=== PATIENT | male | born 1950 | race Caucasian/White ===

== ENCOUNTER 2018-11-04 05:21 | Inpatient (IN) | payer MEDICARE ==
[~2018-11-04] VITALS: Ht 185.4 cm; Wt 186.4 kg
[2018-11-04] VITALS (17 sets, daily range): BP systolic 94–155; BP diastolic 60–93; PULSE 84–108; RESP 20–32; Ht 185.4 cm; Wt 186.4 kg
--- NOTE | 2018-11-04 05:41 | ERD ---
ER Documentation Chief Complaint Chief Complaint BIB RA 7 FROM HOME FOR SOB, DIZZINESS, POSSIBLE SYNCOPE HPI This is a 60-year-old male brought by rescue sent home with shortness of breath dizziness and syncopal episode. He was found down on the hallway. Upon arrival patient is severely tachypneic at 38 satting in the 75 percentile range on room air. He comes up to 83 on high flow nasal cannula. He was a EMS P notification as possible STEMI, however upon arrival no evidence of STEMI was noted in the either the field EKG or the first EKG done here. ROS All systems reviewed and are negative except as per history of present illness. Physical Exam Vitals Vital Signs Date Temp Pulse Resp B/P (MAP) Pulse Ox O2 O2 Flow FiO2 Time Delivery Rate 11/04/18 100.5 135 38 166/114 86 05:27 (131) Physical Exam Const: No acute distress Head: Atraumatic Eyes: Normal Conjunctiva ENT: Normal External Ears, Nose and Mouth. Neck: Full range of motion. No meningismus. Resp: Clear to auscultation bilaterally Cardio: Regular rate and rhythm, no murmurs Abd: Soft, non tender, non distended. Normal bowel sounds Skin: No petechiae or rashes Back: No midline or flank tenderness Ext: No cyanosis, or edema Neur: Awake and alert Psych: Normal Mood and Affect Results 24 hrs Laboratory Tests Test 11/04/18 05:29 11/04/18 05:31 White Blood Count Pending Red Blood Count Pending Hemoglobin Pending Hematocrit Pending Mean Corpuscular Volume Pending Mean Corpuscular Hemoglobin Pending Mean Corpuscular Hemoglobin Concent Pending Red Cell Distribution Width Pending Platelet Count Pending Mean Platelet Volume Pending POC Venous Lactate 1.8 mmol/L Procedures/MDM Emergency department course: Patient seen immediately by ER MD in ambulance bay. Taken to bed 14 for critical bed placement. Code sepsis called. Intravenous access established. Patient placed on BiPAP. Blood work retrieved. Stat EKG d one. Serial exams improved EKG: Rate/Rhythm: Variable IA intervals, irregularly rhythm, tachycardic rate QRS, ST, T-waves: [No changes consistent w/ acute ischemia] Impression: A. fib with RVR Chest X-ray 1V Interpreted by me: Soft Tissue: No acute abnormalities Bones: No acute abnormalities Mediastinum/Cardiac Silhouette/Lungs: [No acute abnormalities] increased interstitial fluid markings. Impression: Pulmonary edema Medical decision making: This is an unfortunate 68-year-old male with multiple medical problems and multiple comorbidities comes in with severe shortness of breath and syncopal episode. No evidence of STEMI was noted by me does have evidence of pulmonary edema. Patient has improved somewhat on BiPAP at this time. Patient will be admitted to intensive care unit for further evaluation and management given his continued tachypnea and overall clinical picture. Critical Care: Time: 45 minutes, independent of any separately billable procedural time Treatments/Evaluations: Close monitoring and treatment of unstable vital signs, cardiorespiratory, and neurologic status, while maintaining tight balance of fluid, respiratory, and cardiac interventions. Departure Diagnosis: Primary Impression: Shortness of breath Additional Impressions: Acute pulmonary edema Atrial fibrillation with RVR Acute febrile illness Acute respiratory failure Respiratory failure complication: unspecified whether with hypoxia or hypercapnia Qualified Codes: J96.00 - Acute respiratory failure, unspecified whether with hypoxia or hypercapnia Condition: Critical TOO ELLIS Nov 04, 2018 05:41
[2018-11-04] MEDS ORDERED: FUROSEMIDE 40 MG INJ IV ONE (06:00)
[2018-11-04] MEDS ORDERED: HEPARIN 1000 UNITS/ML 10 ML INJ IV ONE (06:30)
[2018-11-04] MEDS ORDERED: METOPROLOL 5 MG INJ IV ONE (06:30)
[2018-11-04] MEDS ORDERED: MAGNESIUM SULFATE 1 GM/D5W 100 ML IVPB ONE (06:30)
[2018-11-04] MEDS ORDERED: ACETAMINOPHEN 650MG/20.3ML CUP PO PRN (06:30)
[2018-11-04] MEDS ORDERED: HEPARIN 25000 UNITS/250 ML 250 ML IV SCH (06:30)
[2018-11-04] MEDS: PANTOPRAZOLE 40 MG INJ IV SCH (07:03)
[2018-11-04] MEDS ORDERED: HEPARIN 1000 UNITS/ML 10 ML INJ IV SCH (07:30)
[2018-11-04] MEDS ORDERED: HEPARIN 1000 UNITS/ML 10 ML INJ IV PRN ×2 (07:30→12:30)
--- NOTE | 2018-11-04 07:35 | HP ---
Date/Time of Note Date/Time of Note DATE: 11/04/18 TIME: 07:19 Assessment/Plan VTE Prophylaxis Pharmacological prophylaxis: heparin Lines/Catheters IV Catheter Type (from Nrs): Saline Lock Assessment/Plan Hospital Course This is a 60-year-old male being admitted to the ICU floor for: #1 acute hypoxic respiratory failure: Currently on BiPAP with improvement. Etiology possibly multifactorial secondary to underlying CHF, pulmonary emb olism, pneumonia other. We will continue the patient on BiPAP at the current time. Serial ABGs. Consult pulmonology. Chest x-ray does show signs of possible infiltrates and/or congestion. Patient did present with a fever of 100.5. Will get blood cultures and lactate level and start the patient on broad-spectrum antibiotics for possible community-acquired pneumonia. We will give the patient dose of Lasix as well. Will check a d-dimer and bilateral venous Dopplers. He will already be started on heparin drip given the fact that he is in rapid A. fib with RVR. #2 rapid A. fib with RVR: Patient denies history of this. We will check a magnesium level, potassium at the current time is normal. Will check TSH, will trend cardiac enzymes x3. Will get an echocardiogram. Will consult cardiology . Will give a dose of Lopressor 2.5 IV x1 #3 Acute versus acute on chronic kidney injury: I do not have a previous baseline creatinine. Creatinine noted to be 3.66. Will avoid nephrotoxic agents. Will check a renal ultrasound. Will check urine studies. Including urinalysis and urine microscope. Will consult nephrology Dr. Watson. #4 elevated BNP: Patient had a BNP of approximately 3000 along with signs of volume overload. Likely undiagnosed CHF. Will check an echocardiogram. The patient did receive a dose of Lasix in the ED will assess urine output. Will consult cardiology. Hold off on CICI inhibitor initiation at the current time given patient's renal failure. #5 metabolic acidosis: Likely multifactorial secondary to renal failure, possible underlying pneumonia. Will monitor closely. Will treat with antibiotics for the pneumonia. Will consult nephrology. #6 hypertension: We will need to confirm patient's home medications, will start the patient currently on Norvasc. #7 DVT GI prophylaxis: Heparin, Protonix Further treatment strategy will be implemented as per the clinical course Greater than 45 minutes critical care time spent on care management this patient. Result Diagram: 3/7/19 0529 11/04/18 0531 Results 24hrs Laboratory Tests Test 11/04/18 05:27 11/04/18 05:29 11/04/18 05:31 11/04/18 05:35 Blood Gas Blood arterial Specimen Source Arterial Blood 11/04/2018 6:27:39 Date Drawn AM Arterial Blood 7.377 pH (Temp corrected) Arterial Blood 23.9 L pCO2 (Temp correct) Arterial Blood 490.3 H pO2 (Temp corrected) Arterial Blood 13.7 L HCO3 Arterial Blood -9.3 L Base Excess Arterial Blood 99.9 H Oxygen Saturatio n [place] Test ACCEPTAB Arterial Blood Right Radial Gas Puncture Site Arterial 0.4 Blood Carboxyhem oglobin Arterial Blood 0.5 Methemoglobin Blood Gas A-a O2 198.8 H Differential Oxyhemoglobin 99.0 Percent Blood Gas 37.0 Temperature Blood Gas 20.0 Respiration Rate Blood Gas Actual 30 Respiration Rate Blood Gas MASK - BIPAP Modality FiO2 100.0 Blood Gas 10 Pressure Support Blood Gas 15/5 IPAP/EPAP Ratio Blood Gas [facility] Notified Whom Blood Gas 11/04/2018 6:38:47 Notified Time AM White Blood 7.1 Count Red Blood Count 5.58 Hemoglobin 14.0 Hematocrit 44.0 Mean Corpuscular 78.9 L Volume Mean Corpuscular 25.1 L Hemoglobin Mean Corpuscular 31.8 L Hemoglobin Nallely nt Red Cell 17.0 H Distribution Width Platelet Count 161 Mean Platelet 10.4 Volume Immature 0.700 H Granulocytes % Neutrophils % 79.8 H Lymphocytes % 10.9 L Monocytes % 8.3 Eosinophils % 0.0 Basophils % 0.3 Nucleated Red 0.0 Blood Cells % Immature 0.050 H Granulocytes # Neutrophils # 5.7 Lymphocytes # 0.8 Monocytes # 0.6 Eosinophils # 0.0 Basophils # 0.0 Nucleated Red 0.0 Blood Cells # Prothrombin Time 14.9 Prothrombin Time 1.2 Ratio INR 1.16 International Normalized Ratio Activated 30.3 Partial Thrombop last Time D-Dimer 3927.88 H D-Dimer Comment Sodium Level 132 L Potassium Level 4.4 Chloride Level 101 Carbon Dioxide 16 L Level Anion Gap 15 H Blood Urea 43 H Nitrogen Creatinine 3.66 H Est Glomerular 17 L Filtrat Rate mL/min Glucose Level 139 POC Venous 1.8 Lactate Calcium Level 9.3 Total Bilirubin 0.7 Direct Bilirubin 0.00 Indirect 0.7 Bilirubin Aspartate Amino 44 Transf (AST/SGOT ) Alanine 17 Aminotransferase (ALT/SGPT) Alkaline 63 Phosphatase Troponin I 0.065 B-Type 3840 H Natriuretic Peptide Total Protein 7.6 Albumin 4.1 Globulin 3.50 H Albumin/Globulin 1.17 Ratio Lipase 72 Urine Color YELLOW Urine Clarity SLIGHTLY CLOUDY A Urine pH 5.0 Urine Specific 1.013 [place] Urine Ketones NEGATIVE Urine Nitrite NEGATIVE Urine Bilirubin NEGATIVE Urine NEGATIVE Urobilinogen Urine Leukocyte NEGATIVE Esterase Urine 69 H Microscopic RBC Urine 0 Microscopic WBC Urine Hemoglobin 3+ H Urine Glucose NEGATIVE Urine Total 2+ H Protein Test 11/04/18 05:52 Bedside Urine pH 5.5 (LAB) Bedside Urine 3+ H Protein (LAB) Bedside Urine Negative Glucose (UA) Bedside Urine Negative Ketones (LAB) Bedside Urine 3+ H Blood Bedside Urine Negative Nitrite (LAB) Bedside Urine Negative Leukocyte Estera se (L HPI/ROS Admit Date/Time Admit Date/Time Hx of Present Illness Chief complaint: Shortness of breath, syncopal episode This is a 68-year-old male who was brought in via EMS for shortness of breath. History was obtained from the patient as well as from the ED physician. Apparently the patient's brother had stated that the patient was noted to be short of breath and he was complaining of dizziness and had been falling. He possibly had a syncopal episode at home. EMS reported that the patient was found in the hallway with respiratory distress and he was saturating in the low 80s on room air. Patient was given albuterol treatment and placed on a nonrebreather. When the patient arrived in the emergency department he was noted to be tachycardic in the 130s with oxygenation 86-89% on 15 L no nrebreather. Upon examination of the patient at the bedside he did not report any chest pain. He did appear to be in moderate respiratory distress and was placed on a BiPAP which did result in improvement of his breathing. Telemetry monitoring did show what appeared to be rapid A. fib with RVR at approximately 130 bpm. Patient was noted to have coarse breath sounds bilaterally, and slight wheezing. Allergies: NKDA Medications: Unknown will need to confirm ROS Const: As per HPI s Eyes : No pain discharge or redness or change in visual acuity ENT: No pain, sore throat, congestion, congestion, dysphagia or discharge Respiratory: As per HPI Cardiovascular: No chest pain, palpitation, PND, or edema GI : no change in appetite, abdominal pain, nausea, vomiting, diarrhea, constipation, or change in the color his stool Genitourinary: No dysuria, hematuria, flank pain , discharge or CVA tenderness Musculoskeletal: As per HPI Skin: No rash, bruising or hives Neuro: No headache, dizziness, syncope, seizure, focal weakness Endocrine: No polyuria, polydipsia, temperature intolerance Psych: No hallucination, depression, anxiety or suicidal ideation PMH/Family/Social Past Medical History Hypertension Medications Current Medications Acetaminophen (Tylenol Liquid) 650 mg Q6H PRN PO PAIN LEVEL 1-3 OR FEVER; Start 11/04/18 at 06:30 Pantoprazole (Protonix Iv) 40 mg DAILY@06 IV ; Start 11/04/18 at 06:00 Heparin Sodium (Porcine) (Heparin (1000 Units/ml)) 4,000 unit PER PROTOCOL PRN IV aPTT<47; Start 11/04/18 at 12:30 Heparin Sodium (Porcine) 250 ml @ 10 mls/hr PER PROTOCOL IV ; Start 11/04/18 at 06:30 Magnesium Sulfate/ Dextrose 100 ml @ 100 mls/hr ONCE ONCE IVPB ; Start 11/04/18 at 06:30; Stop 11/04/18 at 07:29 Coded Allergies: No Known Allergy (Unverified , 11/04/18) Past Surgical History Past Surgical Hx: no surgical history Family History Significant Family History: no pertinent family hx Social History Alcohol Use: none Smoking Status: Never smoker Drug Use: none Exam/Review of Systems Vital Signs Vitals Vital Signs Date Temp Pulse Resp B/P (MAP) Pulse Ox O2 O2 Flow FiO2 Time Delivery Rate 11/04/18 91 29 147/86 100 BIPAP 06:30 (106) 11/04/18 100 05:30 11/04/18 15.0 05:30 11/04/18 100.5 05:27 Exam Exam General: Patient is currently lying in bed in moderate respiratory distress, he is connected to the BiPAP, patient appears disheveled HEENT: Atraumatic, normocephalic. The pupils are equal, round and reactive. Extraocular motor are intact Neck: Supple with full range of motion. No rigidity or meningismus Chest: Nontender Lungs: Coarse breath sounds bilaterally, mild wheezing/rales Heart: Irregularly irregular at a rate of approximately 130 bpm Abdomen: Morbidly obese, soft , nontender, nondistended , bowel sounds are present. No guarding no rebound tenderness , No masses or organomegaly. No costovertebral temporal angle mass Extremities: Bilateral lower extremity edema left greater than the right, chronic skin changes noted Neurologic: Normal mental status, speech normal, cranial nerves II through XII are intact, motor and sensory are intact, Additional Comments EKG: Rapid A. fib with RVR approximately 130 bpm PROCEDURE: XR Chest. CLINICAL INDICATION: Sepsis TECHNIQUE: AP portable chest was obtained COMPARISON: None. FINDINGS: The left lateral lower hemithorax is cut off the image. The heart is mildly enlarged. Atherosclerosis of the aorta. No evidence of pulmonary vascular congestion. Increased density at both lung bases more so left base may all be due to atelectasis and scarring. Basilar infiltrates especially at the left base cannot be excluded. Remainder lungs are clear. No evidence of right pleural effusion and pneumothoraces. No definite left pleural effusion. IMPRESSION: 1. Bibasilar increased density more extensive at the left base may all be due to atelectasis and scarring. Basilar infiltrates especially at the left base sh ould be considered. 2. Cardiomegaly without congestive heart failure. RPTAT:AAJJ Physician Kayy Date Time Electronically viewed and signed by Physician Kayy on 11/04/2018 05:58 BM/ CC: TOO ELLIS [id number] MANJIT AKBAR Nov 04, 2018 07:30
[2018-11-04] MEDS: HEPARIN 25000 UNITS/D5W 250 ML (VPH) IV SCH ×2 (07:39→23:33)
[2018-11-04] MEDS: AZITHROMYCIN 500MG/NS (PMX) 250 ML IVPB SCH (08:26)
[2018-11-04] MEDS ORDERED: CEFTRIAXONE 1 GM/50 ML (PMX) 50 ML IVPB ONE (09:00)
--- NOTE | 2018-11-04 10:13 | CONS ---
DATE OF ADMISSION: 11/04/2018 DATE OF CONSULTATION: 11/04/2018 TYPE OF CONSULTATION: Nephrology. REASON FOR CONSULTATION: Acute kidney injury. PHYSICIAN REQUESTING CONSULT: Dr. Akbar. HISTORY OF PRESENT ILLNESS: This is a 68-year-old male with a past medical history of hypertension, who was brought to the emergency room due to increased shortness of breath, dizziness. The patient s tates he may have had a syncopal episode at home. The patient reported increasing shortness of breat h. Upon arrival to the emergency room, the patient was found to be saturating in the 80s. The patie nt was tachycardic and was placed on BiPAP, given albuterol treatment. Upon arrival, the patient als o had imaging studies including a chest x-ray, which showed increased densities in the lung. The pat ient was also started on antibiotic therapy. In terms of patient's renal history, the patient denies any prior history of chronic kidney disease, acute kidney injury. On admission, the patient has creatinine of 3.66 mg/dL. The patient denies any hemoptysis, hematemesis or hematochezia. PAST MEDICAL HISTORY: History of hypertension. FAMILY HISTORY: No family history of kidney disease. SOCIAL HISTORY: The patient denies any drug use. ALLERGIES: NO KNOWN DRUG ALLERGIES. REVIEW OF SYSTEMS: A 14-point review of systems was reviewed. Pertinent positives stated in HPI, ot herwise negative. PAST SURGICAL HISTORY: None per patient. PHYSICAL EXAMINATION: VITAL SIGNS: Blood pressure is 128/90, respirations 28, pulse 91, temperature 100.0. HEENT: Head is normocephalic. Pupils are reactive to light. NECK: Supple. HEART: Regular rate. LUNGS: Show diminished breath sounds at the base. ABDOMEN: Soft, nontender to palpation without rebound or guarding. EXTREMITIES: Negative for clubbing, cyanosis. Positive edema. DERMATOLOGIC: No rashes. MUSCULOSKELETAL: No joint effusion. NEUROLOGIC: Limited exam, but no focal deficits. LABORATORY DATA: Shows sodium 132, potassium 4.4, BUN 43, creatinine 3.66. White count 7.1, hemoglo bin 14.0, platelet count is 161. Urinalysis shows pyuria, no hematuria. Positive proteinuria. ASSESSMENT AND PLAN: This is a 68-year-old male who presents with: 1. Renal failure, possible nonoliguric acute kidney injury, possible chronic kidney disease. Etiolo gy of renal failure is unclear. Multifactorial possibilities including hemodynamics, questionable ca rdiorenal syndrome, possible tubular injury. Plan at this point is to do a full evaluation. We will repeat UA with microanalysis, check urine electrolytes, calculate a FENa. We will check a renal ult rasound to evaluate renal parenchyma. We would otherwise continue medical management. Continue anti biotic therapy. Continue supportive care, renally dose all medicines. We would also agree with [facility] oral a 2D echo to evaluate the patient's ejection fraction. 2. Anemia. Continue to monitor hemoglobin and hematocrit levels. 3. Hyponatremia, etiology is likely secondary to acute kidney injury causing decreased free water ur inary excretion. We will monitor sodium levels and limit free water intake. 4. Metabolic acidosis with respiratory compensation. Etiology is secondary to acute kidney injury. We will continue to monitor. No need for bicarbonate therapy at this time. 5. Volume overload. Etiology may be secondary to congestive heart failure. We will follow up 2D ec ho. Continue diuretic therapy, and monitor closely. 6. Acute hypoxemic respiratory failure. Etiology is possibly multifactorial secondary to congestive heart failure, possible chronic obstructive pulmonary disease exacerbation, questionable PE. The taylor stinson is currently on heparin protocol on BiPAP, received diuretic therapy. We will continue to hardik tor closely. 7. Atrial fibrillation with rapid rate. Continue current medical management. We will continue to c heck serial troponins to rule out acute coronary syndrome. Check TSH. 8. Hypertension. Continue current blood pressure regimen. 9. Possible pneumonia. Continue current antibiotic therapy. Thank you, Dr. Akbar, for this interesting consult. It will be a pleasure to follow patient with sugey ann throughout the hospital course. Dictated By: TOBI FLORES DO NR/NTS Conf#: [id number] DID#: [id number] CC: MANJIT AKBAR MD; FRANCIS OROZCO MD; DIANA KWOK DO;*EndCC*
--- NOTE | 2018-11-04 10:28 | CONS ---
Assessment/Plan Assessment/Plan Assessment/Plan (Daily) Chest x-ray showing cardiomegaly Assessment recommendations; 1. Patient admitted with shortness of breath is likely is due to A. fib with RVR. Patient started on intravenous heparin by protocol. Being followed by passenger solicitor. 2. Possibly underlying chronic renal insufficiency with possibly acute decompensation. 3. Mild metabolic acidosis. 4. Underlying obesity with likely sleep apnea. 5. Chronic appearing lower extremity edema without any evidence of infection. 6. Mild CHF. Continue current supportive care. Continue current antibiotics. Further recommendations per pipe fitter fire sprinkler systems and passenger solicitor. Continue BiPAP for now. Obtain follow-up chest x-ray in 24 hours. Consultation Date/Type/Reason Admit Date/Time Date of Consultation: Nov 04, 2018 Type of Consult Pulmonary/critical care Patient is a 68-year-old male who came into the emergency room with complaints of shortness of breath. Patient was found to be in atrial fibrillation with rapid ventricular response. Patient has been started on intravenous heparin by protocol and now transferred to ICU for further care. Patient is completely awake and alert and was able to talk despite being on BiPAP. According to him he is feeling much better since admission. Denies any chest pain, wheezing, cough. Sputum production. Past medical history; 1. Likely underlying sleep apnea. 2. Chronic lower extremity cellulitis. 3. Possibly chronic renal insufficiency. Medications; reviewed. Allergies; none. Social history; patient never smoked. Occupational history; patient is on disability. Has had miscellaneous occupations. Family history; noncontributory. Review of systems; denies any headache, seizures. Any chest pain. Angina. Shortness of breath has improved. Complains of very scant cough without any sputum production. Denies any fever or chills. Denies any abdominal pain, nausea vomiting. Any melena or hematochezia. Any diarrhea. Complains of chronic lower extremity edema. Complains of chronic orthopnea. Chronic dyspnea on exertion. Complains of snoring and excessive daytime sleepiness. General exam; elderly male, morbidly obese, on BiPAP. Awake and alert. Currently in no distress. Date/Time of Note DATE: 11/04/18 TIME: 10:24 Past Medical History Home Meds Unable to Obtain Active Prescriptions or Reported Meds Medications Current Medications Acetaminophen (Tylenol Liquid) 650 mg Q6H PRN PO PAIN LEVEL 1-3 OR FEVER; Start 11/04/18 at 06:30 Pantoprazole (Protonix Iv) 40 mg DAILY@06 IV Last administered on 11/04/18at 07:03; Admin Dose 40 MG; Start 11/04/18 at 06:00 Heparin Sodium (Porcine) (Heparin (1000 Units/ml)) 10,000 unit ONCE IV Last administered on 11/04/18at 07:37; Admin Dose 10,000 UNIT; Start 11/04/18 at 07:30; Stop 11/04/18 at 23:59 Heparin Sodium (Porcine) 250 ml @ 20 mls/hr Q24H IV Last administered on 11/04/18at 07:39; Admin Dose 20 MLS/HR; Start 11/04/18 at 07:30 Heparin Sodium (Porcine) (Heparin (1000 Units/ml)) PRN PRN IV PENDING LAB VALUE; Start 11/04/18 at 07:30 Azithromycin 250 ml @ 250 mls/hr Q24H IVPB Last administered on 11/04/18at 08:26; Admin Dose 250 MLS/HR; Start 11/04/18 at 08:00 Allergies: Coded Allergies: No Known Allergy (Unverified , 11/04/18) Past Surgical History Past Surgical Hx: no surgical history Social History Alcohol Use: none Smoking Status: Never smoker Drug Use: none Exam/Review of Systems Exam Vitals Vital Signs Date Temp Pulse Resp B/P (MAP) Pulse Ox O2 O2 Flow FiO2 Time Delivery Rate 11/04/18 97.0 108 26 141/90 99 Room Air 09:34 (107) 91 BIPAP 11/04/18 35 07:15 11/04/18 15.0 05:30 Exam HEENT exam; supple neck, JVD difficult to see because of presence of lyles and short neck. On BiPAP. No neck masses. No thyromegaly. Chest exam; diminished breath sounds throughout. S1-S2 audible, no murmurs. Irregular rhythm. Tachycardic. Abdomen exam; soft, grossly protuberant. Organomegaly difficult to assess. Bowel sounds audible. Extremity exam; chronic appearing lower extremity skin changes with mild erythema with trace edema. PIPELINE INTEGRITY ENGINEER exam; no focal deficit. Results Result Diagram: 11/04/18 0511/04/18 0531 Results 24hrs Laboratory Tests Test 3/7/19 05:26 11/04/18 05:27 11/04/18 05:29 11/04/18 05:31 Thyroid 2.670 Stimulating Hormone (TSH) Free Thyroxine 1.09 Free 2.29 L Triiodothyronine (T3) pg/mL Blood Gas Blood arterial Specimen Source Arterial Blood 11/04/2018 6:27:39 Date Drawn AM Arterial Blood 7.377 pH (Temp corrected) Arterial Blood 23.9 L pCO2 (Temp correct) Arterial Blood 490.3 H pO2 (Temp corrected) Arterial Blood 13.7 L HCO3 Arterial Blood -9.3 L Base Excess Arterial Blood 99.9 H Oxygen Saturatio n [place] Test ACCEPTAB Arterial Blood Right Radial Gas Puncture Site Arterial 0.4 Blood Carboxyhem oglobin Arterial Blood 0.5 Methemoglobin Blood Gas A-a O2 198.8 H Differential Oxyhemoglobin 99.0 Percent Blood Gas 37.0 Temperature Blood Gas 20.0 Respiration Rate Blood Gas Actual 30 Respiration Rate Blood Gas MASK - BIPAP Modality FiO2 100.0 Blood Gas 10 Pressure Support Blood Gas 15/5 IPAP/EPAP Ratio Blood Gas [facility] Notified Whom Blood Gas 11/04/2018 6:38:47 Notified Time AM White Blood 7.1 Count Red Blood Count 5.58 Hemoglobin 14.0 Hematocrit 44.0 Mean Corpuscular 78.9 L Volume Mean Corpuscular 25.1 L Hemoglobin Mean Corpuscular 31.8 L Hemoglobin Nallely nt Red Cell 17.0 H Distribution Width Platelet Count 161 Mean Platelet 10.4 Volume Immature 0.700 H Granulocytes % Neutrophils % 79.8 H Lymphocytes % 10.9 L Monocytes % 8.3 Eosinophils % 0.0 Basophils % 0.3 Nucleated Red 0.0 Blood Cells % Immature 0.050 H Granulocytes # Neutrophils # 5.7 Lymphocytes # 0.8 Monocytes # 0.6 Eosinophils # 0.0 Basophils # 0.0 Nucleated Red 0.0 Blood Cells # Prothrombin Time 14.9 Prothrombin Time 1.2 Ratio INR 1.16 International Normalized Ratio Activated 30.3 Partial Thrombop last Time D-Dimer 3927.88 H D-Dimer Comment Sodium Level 132 L Potassium Level 4.4 Chloride Level 101 Carbon Dioxide 16 L Level Anion Gap 15 H Blood Urea 43 H Nitrogen Creatinine 3.66 H Est Glomerular 17 L Filtrat Rate mL/min Glucose Level 139 Hemoglobin A1c 5.3 POC Venous 1.8 Lactate Calcium Level 9.3 Magnesium Level 1.7 Total Bilirubin 0.7 Direct Bilirubin 0.00 Indirect 0.7 Bilirubin Aspartate Amino 44 Transf (AST/SGOT ) Alanine 17 Aminotransferase (ALT/SGPT) Alkaline 63 Phosphatase Troponin I 0.065 B-Type 3840 H Natriuretic Peptide Total Protein 7.6 Albumin 4.1 Globulin 3.50 H Albumin/Globulin 1.17 Ratio Lipase 72 Test 11/04/18 05:35 11/04/18 05:52 Urine Color YELLOW Urine Clarity SLIGHTLY CLOUDY A Urine pH 5.0 Urine Specific 1.013 [place] Urine Ketones NEGATIVE Urine Nitrite NEGATIVE Urine Bilirubin NEGATIVE Urine NEGATIVE Urobilinogen Urine Leukocyte NEGATIVE Esterase Urine 69 H Microscopic RBC Urine 0 Microscopic WBC Urine Hemoglobin 3+ H Urine Glucose NEGATIVE Urine Total 2+ H Protein Bedside Urine pH 5.5 (LAB) Bedside Urine 3+ H Protein (LAB) Bedside Urine Negative Glucose (UA) Bedside Urine Negative Ketones (LAB) Bedside Urine 3+ H Blood Bedside Urine Negative Nitrite (LAB) Bedside Urine Negative Leukocyte Estera se (L Medications Medication Current Medications Acetaminophen (Tylenol Liquid) 650 mg Q6H PRN PO PAIN LEVEL 1-3 OR FEVER; Start 11/04/18 at 06:30 Pantoprazole (Protonix Iv) 40 mg DAILY@06 IV Last administered on 11/04/18at 07:03; Admin Dose 40 MG; Start 11/04/18 at 06:00 Heparin Sodium (Porcine) (Heparin (1000 Units/ml)) 10,000 unit ONCE IV Last administered on 11/04/18at 07:37; Admin Dose 10,000 UNIT; Start 11/04/18 at 07:30; Stop 11/04/18 at 23:59 Heparin Sodium (Porcine) 250 ml @ 20 mls/hr Q24H IV Last administered on 11/04/18at 07:39; Admin Dose 20 MLS/HR; Start 11/04/18 at 07:30 Heparin Sodium (Porcine) (Heparin (1000 Units/ml)) PRN PRN IV PENDING LAB VALUE; Start 11/04/18 at 07:30 Azithromycin 250 ml @ 250 mls/hr Q24H IVPB Last administered on 11/04/18at 08:26; Admin Dose 250 MLS/HR; Start 11/04/18 at 08:00 ANDREAS WING 7, 2019 10:28
[2018-11-04] MEDS ORDERED: [UNRECOGNIZED DRUG - REMARK] XX SCH (12:00)
--- NOTE | 2018-11-04 12:29 | CONS ---
Assessment/Plan Assessment/Plan Hospital Course (Demo Recall) Respiratory failure Possible pneumonia Atrial fibrillation with rapid ventricular rates, improved Morbid obesity Renal dysfunction -Patient with progressive shortness of breath with wheezing. Chest x-ray with possible infiltrate. Currently on BiPAP. Titrate as per pulmonary -Antibiotics as per infectious disease -Check echocardiogram. Serial cardiac enzymes have been negative. BNP elevated but this in the setting of severe renal dysfunction -Further diuretics as per nephrology Consultation Date/Type/Reason Admit Date/Time Type of Consult Cardiology Reason for Consultation Respiratory failure Date/Time of Note DATE: 11/04/18 TIME: 12:20 Hx of Present Illness This is a 68-year-old male who presents with possible syncopal episode and worsening shortness of breath. History obtained from the patient as well as medical chart. It appears patient was having increased shortness of breath and dizziness with possible syncope. Patient does not think he passed out but he does not remember. Patient was brought to emergency room hypoxic and put on BiPAP with improvement. He is currently in the ICU on BiPAP. He does feel slightly better regards to shortness of breath. Denies any chest pain, palpitations or dizziness. Denies any cardiac history. 12 point review of systems was performed with all pertinent positives and negatives mentioned above and all else is negative Past Medical History Medical History: no pertinent history Home Meds Unable to Obtain Active Prescriptions or Reported Meds Medications Current Medications Acetaminophen (Tylenol Liquid) 650 mg Q6H PRN PO PAIN LEVEL 1-3 OR FEVER; Start 11/04/18 at 06:30 Pantoprazole (Protonix Iv) 40 mg DAILY@06 IV Last administered on 11/04/18at 07:03; Admin Dose 40 MG; Start 11/04/18 at 06:00 Heparin Sodium (Porcine) (Heparin (1000 Units/ml)) 10,000 unit ONCE IV Last administered on 11/04/18at 07:37; Admin Dose 10,000 UNIT; Start 11/04/18 at 07:30; Stop 11/04/18 at 23:59 Heparin Sodium (Porcine) 250 ml @ 20 mls/hr Q24H IV Last administered on 11/04/18at 07:39; Admin Dose 20 MLS/HR; Start 11/04/18 at 07:30 Heparin Sodium (Porcine) (Heparin (1000 Units/ml)) PRN PRN IV PENDING LAB VALUE; Start 11/04/18 at 07:30 Azithromycin 250 ml @ 250 mls/hr Q24H IVPB Last administered on 11/04/18at 08:26; Admin Dose 250 MLS/HR; Start 11/04/18 at 08:00 Influenza Virus Vaccine Quadrival (Fluzone) 0.5 ml ONCE ONCE IM* ; Start 11/05/18 at 12:00; Stop 11/05/18 at 12:01; Status Future Hold Miscellaneous Information PLEASE CALL PHARM... NOTE XX ; Start 11/04/18 at 12:00 Allergies: Coded Allergies: No Known Allergy (Unverified , 11/04/18) Past Surgical History Past Surgical Hx: no surgical history Social History Alcohol Use: none Smoking Status: Former smoker Drug Use: none Exam/Review of Systems Vital Signs Vitals Vital Signs Date Temp Pulse Resp B/P (MAP) Pulse Ox O2 O2 Flow FiO2 Time Delivery Rate 11/04/18 99.5 96 28 137/92 100 BIPAP 12:00 (107) 11/04/18 35 10:20 11/04/18 15.0 05:30 Exam Constitutional: alert, oriented (Obese, on BiPAP, not able to speak in complete sentences) Head: normocephalic Respiratory: other (Coarse breath sounds bilaterally, and expiratory wheezing) Cardiovascular: irregular rhythm (S1-S2 heard) Gastrointestinal: soft, non-tender, bowel sounds Extremities: edema (Venous stasis changes) Labs Result Diagram: 11/04/18 0529 11/04/18 0531 Results 24hrs Laboratory Tests Test 11/04/18 05:26 11/04/18 05:27 11/04/18 05:29 11/04/18 05:31 Thyroid 2.670 Stimulating Hormone (TSH) Free Thyroxine 1.09 Free 2.29 L Triiodothyronine (T3) pg/mL Blood Gas Blood arterial Specimen Source Arterial Blood 11/04/2018 6:27:39 Date Drawn AM Arterial Blood 7.377 pH (Temp corrected) Arterial Blood 23.9 L pCO2 (Temp correct) Arterial Blood 490.3 H pO2 (Temp corrected) Arterial Blood 13.7 L HCO3 Arterial Blood -9.3 L Base Excess Arterial Blood 99.9 H Oxygen Saturatio n [place] Test ACCEPTAB Arterial Blood Right Radial Gas Puncture Site Arterial 0.4 Blood Carboxyhem oglobin Arterial Blood 0.5 Methemoglobin Blood Gas A-a O2 198.8 H Differential Oxyhemoglobin 99.0 Percent Blood Gas 37.0 Temperature Blood Gas 20.0 Respiration Rate Blood Gas Actual 30 Respiration Rate Blood Gas MASK - BIPAP Modality FiO2 100.0 Blood Gas 10 Pressure Support Blood Gas 15/5 IPAP/EPAP Ratio Blood Gas [facility] Notified Whom Blood Gas 11/04/2018 6:38:47 Notified Time AM White Blood 7.1 Count Red Blood Count 5.58 Hemoglobin 14.0 Hematocrit 44.0 Mean Corpuscular 78.9 L Volume Mean Corpuscular 25.1 L Hemoglobin Mean Corpuscular 31.8 L Hemoglobin Nallely nt Red Cell 17.0 H Distribution Width Platelet Count 161 Mean Platelet 10.4 Volume Immature 0.700 H Granulocytes % Neutrophils % 79.8 H Lymphocytes % 10.9 L Monocytes % 8.3 Eosinophils % 0.0 Basophils % 0.3 Nucleated Red 0.0 Blood Cells % Immature 0.050 H Granulocytes # Neutrophils # 5.7 Lymphocytes # 0.8 Monocytes # 0.6 Eosinophils # 0.0 Basophils # 0.0 Nucleated Red 0.0 Blood Cells # Prothrombin Time 14.9 Prothrombin Time 1.2 Ratio INR 1.16 International Normalized Ratio Activated 30.3 Partial Thrombop last Time D-Dimer 3927.88 H D-Dimer Comment Sodium Level 132 L Potassium Level 4.4 Chloride Level 101 Carbon Dioxide 16 L Level Anion Gap 15 H Blood Urea 43 H Nitrogen Creatinine 3.66 H Est Glomerular 17 L Filtrat Rate mL/min Glucose Level 139 Hemoglobin A1c 5.3 POC Venous 1.8 Lactate Calcium Level 9.3 Magnesium Level 1.7 Total Bilirubin 0.7 Direct Bilirubin 0.00 Indirect 0.7 Bilirubin Aspartate Amino 44 Transf (AST/SGOT ) Alanine 17 Aminotransferase (ALT/SGPT) Alkaline 63 Phosphatase Troponin I 0.065 B-Type 3840 H Natriuretic Peptide Total Protein 7.6 Albumin 4.1 Globulin 3.50 H Albumin/Globulin 1.17 Ratio Lipase 72 Test 11/04/18 05:35 11/04/18 05:52 11/04/18 09:56 11/04/18 10:39 Urine Color YELLOW Urine Clarity SLIGHTLY CLOUDY A Urine pH 5.0 Urine Specific 1.013 [place] Urine Ketones NEGATIVE Urine Nitrite NEGATIVE Urine Bilirubin NEGATIVE Urine NEGATIVE Urobilinogen Urine Leukocyte NEGATIVE Esterase Urine 69 H Microscopic RBC Urine 0 Microscopic WBC Urine Hemoglobin 3+ H Urine Random 126.22 Creatinine Urine Random 65 Sodium Urine Glucose NEGATIVE Urine Total 160.0 H Protein Bedside Urine pH 5.5 (LAB) Bedside Urine 3+ H Protein (LAB) Bedside Urine Negative Glucose (UA) Bedside Urine Negative Ketones (LAB) Bedside Urine 3+ H Blood Bedside Urine Negative Nitrite (LAB) Bedside Urine Negative Leukocyte Estera se (L Lactic Acid 1.9 Level Creatine Kinase 1445 H Creatine Kinase 0.4 Index Creatinine 5.12 H Kinase MB (Mass) Troponin I 0.061 Imaging Imaging ECG demonstrates atrial fibrillation at 127 bpm, left bundle branch block, nonspecific ST abnormalities Medications Medications Current Medications Acetaminophen (Tylenol Liquid) 650 mg Q6H PRN PO PAIN LEVEL 1-3 OR FEVER; Start 11/04/18 at 06:30 Pantoprazole (Protonix Iv) 40 mg DAILY@06 IV Last administered on 11/04/18at 07:03; Admin Dose 40 MG; Start 11/04/18 at 06:00 Heparin Sodium (Porcine) (Heparin (1000 Units/ml)) 10,000 unit ONCE IV Last administered on 11/04/18at 07:37; Admin Dose 10,000 UNIT; Start 11/04/18 at 07:30; Stop 11/04/18 at 23:59 Heparin Sodium (Porcine) 250 ml @ 20 mls/hr Q24H IV Last administered on 11/04/18at 07:39; Admin Dose 20 MLS/HR; Start 11/04/18 at 07:30 Heparin Sodium (Porcine) (Heparin (1000 Units/ml)) PRN PRN IV PENDING LAB VALUE; Start 11/04/18 at 07:30 Azithromycin 250 ml @ 250 mls/hr Q24H IVPB Last administered on 11/04/18at 08:26; Admin Dose 250 MLS/HR; Start 11/04/18 at 08:00 Influenza Virus Vaccine Quadrival (Fluzone) 0.5 ml ONCE ONCE IM* ; Start 11/05/18 at 12:00; Stop 11/05/18 at 12:01; Status Future Hold Miscellaneous Information PLEASE CALL PHARM... NOTE XX ; Start 11/04/18 at 12:00 Elio Pino DO Nov 04, 2018 12:29
[2018-11-04] MEDS ORDERED: DILTIAZEM 25 MG INJ IV PRN (12:30)
--- NOTE | 2018-11-04 13:18 | EN ---
Date/Time of Note Date/Time of Note DATE: 11/04/18 TIME: 13:14 Event Note Medicine Medicine Event Note 68-year-old male who was admitted earlier today and managed for the followin. Sepsis c likely secondary to left-sided pneumonia 2. Acute respiratory failure, on NIPPV -Multifactorial, sepsis, A. fib RVR, CHF? 3. A. fib status post RVR: Improved rate control 4. Acute kidney injury on chronic kidney disease 5. Obesity/obstructive sleep apnea? 6. CHF with possible exacerbation? 7. Chronic lower extremity edema, secondary to #6? 8. Hypertension with suboptimal control 9. Mild metabolic acidosis secondary to #4 10. Rhabdomyolysis with creatinine kinase of 1445 PLAN: Continue heparin drip Continue as needed Cardizem and metoprolol q. 8 Continue antibiotics Follow-up final cultures We will tentatively continue spot diuresis for now, renally dose all meds, continue to trend creatinine levels Repeat chest x-ray in the morning Await clinical improvement Further intervention per clinical course . MCKENZIE WHEAT Nov 04, 2018 13:18
[2018-11-04] MEDS: METOPROLOL 25 MG TAB PO SCH ×2 (14:51→21:55)
--- NOTE | 2018-11-04 19:15 | RADRPT ---
Echocardiogram Report Patient Name: ZANE ESTEVEZatient ID: [id number] : 1950 (68y 8m)Study Date: 11/04/2018 7:03:38 AM Gender: MAccession #: [id number] Tech: Rox Galindo RDCS Location: [facility] Ref.Physician: MANJIT AKBAR Height(Cm): BSA: Weight(Kg): Quality: AdequateAccount #: Procedures: Echocardiographic Report: Transthoracic echocardiogram with complete 2D, M-Mode, and doppler examination. Indications: Atrial Fibrillation, and Congestive Heart Failure. Measurements: 2D/M Mode Doppler Measurement Value Normal Range Measurement Value Normal Range LVIDd 2D 4.5 [ 4.2 - 5.8 ] cm AV Peak Evaristo 1.6 [ 100.0 - 170.0 ] cm/sec LVIDs 2D 3.6 [ 2.5 - 4.0 ] cm AV Peak PG 11.0 [ 2.0 - 9.0 ] mmHg LVPWd 2D 1.6 [ 0.6 - 1.0 ] cm LVOT Peak Evaristo 1.1 [ 70.0 - 110.0 ] cm/sec IVSd 2D 1.8 [ 0.6 - 1.0 ] cm LVOT Peak PG 5.0 [ 2.0 - 6.0 ] mmHg AoR Diam 2D 3.9 [ 2.6 - 3.4 ] cm MV E Peak Evaristo 1.2 [ 60.0 - 130.0 ] cm/sec EDV 2D 93.9 [ 62.0 - 150.0 ] ml MV Decel Time 222 [ 104 - 258 ] msec ESV 2D 54.8 [ 21.0 - 61.0 ] ml TR Peak Evaristo 2.4 [ 100.0 - 280.0 ] cm/sec EF 2D 41.6 [ 52.0 - 72.0 ] percent TR Peak PG 24.0 mmHg LA Dimen 2D 3.5 [ 3.0 - 4.0 ] cm RVSP 27.0 [ 10.0 - 36.0 ] mmHg RA Pressure 3.0 mmHg Findings: Left Ventricle: Normal left ventricular systolic function. Normal left ventricular cavity size. Moderate concentric left ventricular hypertrophy. Ejection fraction is visually estimated at 55 %. Abnormal Diastolic Function. Right Ventricle: Normal right ventricular size. Normal right ventricular systolic function. Left Atrium: The left atrium is normal in size. Right Atrium: The right atrium is normal in size. Mitral Valve: Mild mitral annular calcification. Trace mitral regurgitation. Aortic Valve: No significant aortic stenosis or insufficiency. Aortic cusps appear mildly calcified. Tricuspid Valve: Normal appearance of the tricuspid valve. Estimated peak PA systolic pressure 27 mmHg. There is trace tricuspid regurgitation. Pulmonic Valve: Pulmonic valve not well visualized. Pericardium: Normal pericardium with no significant pericardial effusion. Aorta: Normal aortic root. IVC: Normal size and normal respiratory collapse consistent with normal right atrial pressure. Conclusions: Normal left ventricular systolic function. Normal left ventricular cavity size. Moderate concentric left ventricular hypertrophy. Ejection fraction is visually estimated at 55 %. Abnormal Diastolic Function. Normal right ventricular size. Normal right ventricular systolic function. The left atrium is normal in size. The right atrium is normal in size. No significant valvular stenosis or regurgitation seen. Normal pericardium with no significant pericardial effusion. Electronically Signed By: Elio Pino 2018-11-04 19:15:04 PST
[2018-11-05] VITALS (28 sets, daily range): BP systolic 84–138; BP diastolic 61–103; PULSE 47–87; RESP 17–24
[2018-11-05] MEDS ORDERED: VANCOMYCIN HCL 2 GM in SOD CHLORIDE 0.9% 500 ML IVPB ONE (04:00)
[2018-11-05] MEDS ORDERED: VANCOMYCIN IV PER PHARMACY XX SCH (04:00)
[2018-11-05] MEDS: PANTOPRAZOLE 40 MG INJ IV SCH (06:33)
[2018-11-05] MEDS: METOPROLOL 25 MG TAB PO SCH ×3 (06:33→21:06)
[2018-11-05] MEDS: AZITHROMYCIN 500MG/NS (PMX) 250 ML IVPB SCH (08:30)
--- NOTE | 2018-11-05 08:51 | PN ---
DATE: 11/05/2018 SUBJECTIVE: The patient remains in serious condition on BiPAP overnight. The patient's urinary outp ut has been marginal. No other acute events noted. No hemoptysis, hematemesis, or hematochezia. OBJECTIVE: VITAL SIGNS: Blood pressure is 99/73, respirations 23, pulse 71, temperature 99.0. HEENT: Head is normocephalic. NECK: Supple. HEART: Regular rate. LUNGS: Show diminished breath sounds at the base. ABDOMEN: Soft, nontender to palpation without rebound or guarding. EXTREMITIES: Negative for clubbing, cyanosis. Trace edema. DERMATOLOGIC: No rashes. MUSCULOSKELETAL: No joint effusion. NEUROLOGIC: No change in exam. MEDICATIONS: Reviewed. LABORATORY DATA: Urinalysis shows positive hematuria. No pyuria. Positive protein creatinine ratio approximately 1 gram per gram of creatinine, FENa greater than 1%. She has sodium 134, potassium 4. 6, chloride 102, bicarbonate 16, BUN 53, creatinine 4.31. The patient's ABG was reviewed. White cou nt 4.8, hemoglobin 12.6, platelet count is 127. Renal ultrasound shows moderately atrophic echogenic right kidney and hydronephrosis. The patient's BMP shows sodium 134, BUN 53, creatinine 4.31. Whit e count 4.8, hemoglobin 12.6, platelet count is 127. The patient's 2D echo shows a concentric hypert rophy, ejection fraction 55%. IVC is normal with respiratory collapse consistent with normal right a trial pressure. Peak systolic pulmonary arterial pressure is 27 mmHg. ASSESSMENT AND PLAN: 1. Nonoliguric acute kidney injury on top of chronic kidney disease with unknown baseline creatinine . Etiology of acute kidney injury is multifactorial secondary to hemodynamics, possible tubular inju ry, the patient's renal ultrasound was reviewed, shows an atrophic right kidney, but no evidence of o bstruction. Urinalysis shows evidence of mild hematuria and nonglomerular proteinuria, with FENa gre ater than 1%. A 2D echo was also reviewed, showed ejection fraction 55% and normal IVC with appropri ate compressibility with respiration. Therefore, low suspicion for a cardiorenal syndrome. The janina ent likely has underlying chronic kidney disease with possible superimposed acute kidney injury as st ated above. Recommendation at this point would be to continue current treatment plan, supportive car e, renally dose all medicines. We would defer any diuretic therapy. No immediate need for renal merlyn cement therapy. We would consider a course of a fluid challenge if the patient's blood pressure corinne ins low. We will monitor closely. 2. Mild hypernatremia. Continue to monitor sodium levels and limit free water intake. 3. Anemia. Monitor hemoglobin and hematocrit levels. 4. Metabolic acidosis with respiratory compensation. The patient's ABG was reviewed. Continue to m onitor. No need for bicarbonate therapy at this time. 5. Acute hypoxemic respiratory failure. Etiology is possibly secondary to chronic obstructive pulmo nary disease, questionable pulmonary embolism. The patient is on BiPAP, on antibiotic therapy, on he carole drip. We will continue to monitor. Follow up with pulmonary. 6. Atrial fibrillation with rapid rate. Continue current medical management. Follow up with cardio logy for recommendations. 7. Hypertension. Continue current blood pressure regimen. 8. Pneumonia. Continue current antibiotic regimen. Please note I spent 30 minutes of critical care time with this patient. Dictated By: TOBI FLORES DO NR/NTS Conf#: [id number] DID#: [id number] CC: DIANA KWOK DO; MANJIT AKBAR MD;*EndCC*
[2018-11-05] MEDS: ASPIRIN 81 MG TAB PO SCH (09:58)
[2018-11-05] MEDS: CEFTRIAXONE 1 GM/50 ML (PMX) 50 ML IVPB SCH (09:58)
--- NOTE | 2018-11-05 10:05 | CONS ---
Consult Date/Type/Reason Admit Date/Time Nov 04, 2018 at 05:57 Initial Consult Date 11/04/18 Type of Consult Pulmonary Date/Time of Note DATE: 11/05/18 TIME: 10:01 Subjective Patient remained stable this morning awake alert on nasal cannula O2. Objective Vital Signs Date Temp Pulse Resp B/P (MAP) Pulse Ox O2 O2 Flow FiO2 Time Delivery Rate 11/05/18 Nasal 3.0 08:00 Cannula 11/05/18 98.0 78 18 125/90 100 08:00 (102) 11/05/18 35 05:25 Intake and Output 11/04/18 11/04/18 11/05/18 1515:00 23:00 07:00 IntakeIntake Total 100 ml 218.0 ml 620.5 ml OutputOutput Total 925 ml 550 ml 225 ml BalanceBalance -825 ml -332.0 ml 395.5 ml Exam GENERAL: Well-nourished well-developed gentleman comfortable at rest VITAL SIGNS: per chart NECK: Supple. No JVD or lymphadenopathy. CARDIAC EXAM: S1, S2. No added sounds or murmurs. CHEST: Diminished air entry left lung ABDOMEN: Soft, nontender. No guarding or rebound. EXTREMITIES: No cyanosis, clubbing edema +2 NEUROLOGIC: Generalized weakness. No focal deficits. Results/Medications Result Diagram: 11/05/18 0436 11/05/18 0435 Results 24 hrs Laboratory Tests Test 11/04/18 10:39 11/04/18 12:30 11/04/18 14:45 11/04/18 17:51 Creatine Kinase 1445 H 1237 H Creatine Kinase 0.4 0.4 Index Creatinine Kinase 5.12 H 4.55 H MB (Mass) Troponin I 0.061 0.054 Blood Gas Specimen Blood arterial Source Arterial Blood 11/04/2018 12:50:37 Date Drawn PM Arterial Blood pH 7.369 (Temp corrected) Arterial Blood 27.8 L pCO2 (Temp correct) Arterial Blood pO2 124.4 H (Temp corrected) Arterial Blood 15.7 L HCO3 Arterial Blood -8.0 L Base Excess Arterial Blood 98.5 H Oxygen Saturation [place] Test ACCEPTAB Arterial Blood Gas Right Radial Puncture Site Arterial 0.4 Blood Carboxyhemog lobin Arterial Blood 0.4 Methemoglobin Blood Gas A-a O2 92.8 H Differential Oxyhemoglobin 97.7 Percent Blood Gas 37.0 Temperature Blood Gas 20.0 Respiration Rate Blood Gas Actual 25 Respiration Rate Blood Gas Modality MASK - BIPAP FiO2 35.0 Blood Gas Pressure 10 Support Blood Gas 15/5 IPAP/EPAP Ratio Blood Gas Notified TM Whom Blood Gas Notified 11/04/2018 1:03:21 Time PM Activated > 180.0 *H 92.9 *H Partial Thrombopla st Time Test 11/04/18 20:15 11/05/18 02:24 11/05/18 04:31 11/05/18 04:35 Activated 87.5 *H 121.6 *H Partial Thrombopla st Time Iron Level 25 L Total Iron Binding 218 L Capacity Percent Iron 11 L Saturation Sodium Level 134 L Potassium Level 4.6 Chloride Level 102 Carbon Dioxide 16 L Level Anion Gap 16 H Blood Urea 53 H Nitrogen Creatinine 4.31 H Est Glomerular 14 L Filtrat Rate mL/min Glucose Level 112 Calcium Level 8.9 Magnesium Level 2.2 Ferritin 442.0 H Creatine Kinase 849 H Triglycerides 89 Level Cholesterol Level 95 L LDL Cholesterol, 47 Calculated HDL Cholesterol 30 Cholesterol/HDL 3.1 Ratio Test 11/05/18 04:36 White Blood Count 4.8 # Red Blood Count 5.01 Hemoglobin 12.6 L Hematocrit 39.7 L Mean Corpuscular 79.2 L Volume Mean Corpuscular 25.1 L Hemoglobin Mean Corpuscular 31.7 L Hemoglobin Concent Red Cell 17.4 H Distribution Width Platelet Count 127 #L Mean Platelet 10.1 Volume Immature 0.600 H Granulocytes % Neutrophils % 58.0 Lymphocytes % 28.9 Monocytes % 11.5 H Eosinophils % 0.8 Basophils % 0.2 Nucleated Red 0.0 Blood Cells % Immature 0.030 Granulocytes # Neutrophils # 2.8 Lymphocytes # 1.4 Monocytes # 0.6 Eosinophils # 0.0 Basophils # 0.0 Nucleated Red 0.0 Blood Cells # Medications Current Medications Acetaminophen (Tylenol Liquid) 650 mg Q6H PRN PO PAIN LEVEL 1-3 OR FEVER; Sta rt 11/04/18 at 06:30 Pantoprazole (Protonix Iv) 40 mg DAILY@06 IV Last administered on 11/05/18at 06:33; Admin Dose 40 MG; Start 11/04/18 at 06:00 Heparin Sodium (Porcine) 250 ml @ 20 mls/hr Q24H IV Last administered on 11/04/18at 23:33; Admin Dose 14.5 MLS/HR; Start 11/04/18 at 07:30 Heparin Sodium (Porcine) (Heparin (1000 Units/ml)) PRN PRN IV PENDING LAB VALUE; Start 11/04/18 at 07:30; Status Hold Azithromycin 250 ml @ 250 mls/hr Q24H IVPB Last administered on 11/05/18at 08:30; Admin Dose 250 MLS/HR; Start 11/04/18 at 08:00 Influenza Virus Vaccine Quadrival (Fluzone) 0.5 ml ONCE ONCE IM* ; Start 11/05/18 at 12:00; Stop 11/05/18 at 12:01; Status Future Hold Miscellaneous Information PLEASE CALL PHARM... NOTE XX ; Start 11/04/18 at 12:00 Metoprolol Tartrate (Lopressor) 25 mg Q8 PO Last administered on 11/05/18at 06:33; Admin Dose 25 MG; Start 11/04/18 at 14:00 Diltiazem HCl (Cardizem Iv) 20 mg Q1H PRN IV Sustained HR greater than 130; Start 11/04/18 at 12:30 Aspirin (Aspirin) 81 mg DAILY PO Last administered on 11/05/18at 09:58; Admin Dose 81 MG; Start 11/05/18 at 09:00 Ceftriaxone Sodium 50 ml @ 100 mls/hr Q24H IVPB Last administered on 11/05/18at 09:58; Admin Dose 100 MLS/HR; Start 11/05/18 at 09:00 Vancomycin HCl (Vanco Iv Per Pharmacy) VANCOMYCIN PER PHARM... PER PROTOCOL XX ; Start 11/05/18 at 04:00 Assessment/Plan Hospital Course (Demo Recall) Assessment recommendations; 1. Patient admitted with shortness of breath is likely is due to A. fib with RVR. Patient started on intravenous heparin by protocol. Being followed by paper sorter. 2. Possibly underlying chronic renal insufficiency with possibly acute decompensation. 3. Mild metabolic acidosis. 4. Underlying obesity with likely sleep apnea. 5. Possible left effusion versus pneumonia 6. Mild CHF. Plan 1. Continue renal recommendations 2. Hold heparin for ultrasound-guided thoracentesis left pleural effusion 3. Decrease supplemental O2 as tolerated 4. PT evaluation 5. Aspiration precautions Critical care time 40 minutes SOULEYMANE ORELLANA MD, [facility] Nov 05, 2018 10:05
--- NOTE | 2018-11-05 11:17 | PN ---
Date/Time of Note Date/Time of Note DATE: 11/05/18 TIME: 10:28 Assessment/Plan VTE Prophylaxis Risk score (from Ns)>0 risk: 8 [place] [facility]CD contraindicated: other Pharmacological prophylaxis: heparin Lines/Catheters IV C[facility]ter Type (from [facility] Peripheral IV Urinary Cath still in place: Yes Reason Cath still needed: other (indicate) Assessment/Plan Assessment/Plan S: feels better, no chest pain, SOB improved, patient is not a very good historian, speech is slow and he is hard of hearing O : General: obese, lethargic , depressed mentation and affect but oriented with approprate answers to questions mostly monosyllables, slightly hard of hearing HEENT: NC/ AT. PERRL. EOM intact Neck: supple CVS: S1, S2, RRR. no murmurs. no pain on chest wall palpation Lungs: still quite diminished bilaterally with bibasal crackles in lung bases Abd: soft, obese nontender, +BS Ext: moving all extremities, 3-4+ edema on rohini LE with chronic skin changes with flaking and hyperkeratosis but without significant erythema assessment and plan: 68-year-old male who was admitted after he presented with SOB and managed for the followin. Sepsis likely secondary to left-sided pneumonia -CXR also showing pleural effusion and diffuse atelectasis. Multifocal PNA? -limiting fluids based on congestion on XR and possible CHF -Cultures all remain negative for now -Chest CT to further define lung parenchyma 2. Acute respiratory failure, s/p BIPAP, now PRN -Multifactorial, sepsis, A. fib RVR, CHF?, pleural effusion -improving 3. A. fib status post RVR: -Improved rate control, trop neg X3 -was on heparin drip, now on hold for possible thoracentesis per pulm , cardiology following 4. Acute kidney injury on chronic kidney disease -baseline Cr unknown -cr levels worsening -renal following -Avoid nephrotoxic drugs as much as possible, Renally dose all meds. Serial labs. 5. Obesity/obstructive sleep apnea? 6. CHF with possible exacerbation? -diastolic with preserved EF (55%) -renal recommending to defer further diuresis based on echo -continue supportive therapy with O2 -bedrest for now -cardiology following -PRN Bipap 7. Chronic lower extremity edema, secondary to #6? 8. Hypertension with suboptimal control -improved control 9. Mild metabolic acidosis secondary to #4 -same 10. Rhabdomyolysis with creatinine kinase of 1445 -improving Dispo: -chest CT -close monitoring, plan to resume heparin drip or switch to oral after thor acentesis if ok with cards -tele transfer -PT eval -Further intervention per clinical course CRITICAL CARE TIME: >35 mins Result Diagram: 11/05/18 0436 11/05/18 0435 Results 24hrs Laboratory Tests Test 11/04/18 10:39 11/04/18 12:30 11/04/18 14:45 11/04/18 17:51 Creatine Kinase 1445 H 1237 H Creatine Kinase 0.4 0.4 Index Creatinine Kinase 5.12 H 4.55 H MB (Mass) Troponin I 0.061 0.054 Blood Gas Specimen Blood arterial Source Arterial Blood 11/04/2018 12:50:37 Date Drawn PM Arterial Blood pH 7.369 (Temp corrected) Arterial Blood 27.8 L pCO2 (Temp correct) Arterial Blood pO2 124.4 H (Temp corrected) Arterial Blood 15.7 L HCO3 Arterial Blood -8.0 L Base Excess Arterial Blood 98.5 H Oxygen Saturation [place] Test ACCEPTAB Arterial Blood Gas Right Radial Puncture Site Arterial 0.4 Blood Carboxyhemog lobin Arterial Blood 0.4 Methemoglobin Blood Gas A-a O2 92.8 H Differential Oxyhemoglobin 97.7 Percent Blood Gas 37.0 Temperature Blood Gas 20.0 Respiration Rate Blood Gas Actual 25 Respiration Rate Blood Gas Modality MASK - BIPAP FiO2 35.0 Blood Gas Pressure 10 Support Blood Gas 15/5 IPAP/EPAP Ratio Blood Gas Notified TM Whom Blood Gas Notified 11/04/2018 1:03:21 Time PM Activated > 180.0 *H 92.9 *H Partial Thrombopla st Time Test 11/04/18 20:15 11/05/18 02:24 11/05/18 04:31 11/05/18 04:35 Activated 87.5 *H 121.6 *H Partial Thrombopla st Time Iron Level 25 L Total Iron Binding 218 L Capacity Percent Iron 11 L Saturation Sodium Level 134 L Potassium Level 4.6 Chloride Level 102 Carbon Dioxide 16 L Level Anion Gap 16 H Blood Urea 53 H Nitrogen Creatinine 4.31 H Est Glomerular 14 L Filtrat Rate mL/min Glucose Level 112 Calcium Level 8.9 Magnesium Level 2.2 Ferritin 442.0 H Creatine Kinase 849 H Triglycerides 89 Level Cholesterol Level 95 L LDL Cholesterol, 47 Calculated HDL Cholesterol 30 Cholesterol/HDL 3.1 Ratio Test 11/05/18 04:36 White Blood Count 4.8 # Red Blood Count 5.01 Hemoglobin 12.6 L Hematocrit 39.7 L Mean Corpuscular 79.2 L Volume Mean Corpuscular 25.1 L Hemoglobin Mean Corpuscular 31.7 L Hemoglobin Concent Red Cell 17.4 H Distribution Width Platelet Count 127 #L Mean Platelet 10.1 Volume Immature 0.600 H Granulocytes % Neutrophils % 58.0 Lymphocytes % 28.9 Monocytes % 11.5 H Eosinophils % 0.8 Basophils % 0.2 Nucleated Red 0.0 Blood Cells % Immature 0.030 Granulocytes # Neutrophils # 2.8 Lymphocytes # 1.4 Monocytes # 0.6 Eosinophils # 0.0 Basophils # 0.0 Nucleated Red 0.0 Blood Cells # Exam/Review of Systems Exam Vitals Vital Signs Date Temp Pulse Resp B/P (MAP) Pulse Ox O2 O2 Flow FiO2 Time Delivery Rate 11/05/18 74 18 112/84 100 Nasal 10:00 (93) Cannula 11/05/18 3.0 08:00 11/05/18 98.0 08:00 11/05/18 35 05:25 Intake and Output 11/04/18 11/04/18 11/05/18 1515:00 23:00 07:00 IntakeIntake Total 100 ml 218.0 ml 620.5 ml OutputOutput Total 925 ml 550 ml 225 ml BalanceBalance -825 ml -332.0 ml 395.5 ml Results Results 24hrs Laboratory Tests Test 11/04/18 10:39 11/04/18 12:30 11/04/18 14:45 11/04/18 17:51 Creatine Kinase 1445 H 1237 H Creatine Kinase 0.4 0.4 Index Creatinine Kinase 5.12 H 4.55 H MB (Mass) Troponin I 0.061 0.054 Blood Gas Specimen Blood arterial Source Arterial Blood 11/04/2018 12:50:37 Date Drawn PM Arterial Blood pH 7.369 (Temp corrected) Arterial Blood 27.8 L pCO2 (Temp correct) Arterial Blood pO2 124.4 H (Temp corrected) Arterial Blood 15.7 L HCO3 Arterial Blood -8.0 L Base Excess Arterial Blood 98.5 H Oxygen Saturation [place] Test ACCEPTAB Arterial Blood Gas Right Radial Puncture Site Arterial 0.4 Blood Carboxyhemog lobin Arterial Blood 0.4 Methemoglobin Blood Gas A-a O2 92.8 H Differential Oxyhemoglobin 97.7 Percent Blood Gas 37.0 Temperature Blood Gas 20.0 Respiration Rate Blood Gas Actual 25 Respiration Rate Blood Gas Modality MASK - BIPAP FiO2 35.0 Blood Gas Pressure 10 Support Blood Gas 15/5 IPAP/EPAP Ratio Blood Gas Notified TM Whom Blood Gas Notified 11/04/2018 1:03:21 Time PM Activated > 180.0 *H 92.9 *H Partial Thrombopla st Time Test 11/04/18 20:15 11/05/18 02:24 11/05/18 04:31 11/05/18 04:35 Activated 87.5 *H 121.6 *H Partial Thrombopla st Time Iron Level 25 L Total Iron Binding 218 L Capacity Percent Iron 11 L Saturation Sodium Level 134 L Potassium Level 4.6 Chloride Level 102 Carbon Dioxide 16 L Level Anion Gap 16 H Blood Urea 53 H Nitrogen Creatinine 4.31 H Est Glomerular 14 L Filtrat Rate mL/min Glucose Level 112 Calcium Level 8.9 Magnesium Level 2.2 Ferritin 442.0 H Creatine Kinase 849 H Triglycerides 89 Level Cholesterol Level 95 L LDL Cholesterol, 47 Calculated HDL Cholesterol 30 Cholesterol/HDL 3.1 Ratio Test 11/05/18 04:36 White Blood Count 4.8 # Red Blood Count 5.01 Hemoglobin 12.6 L Hematocrit 39.7 L Mean Corpuscular 79.2 L Volume Mean Corpuscular 25.1 L Hemoglobin Mean Corpuscular 31.7 L Hemoglobin Concent Red Cell 17.4 H Distribution Width Platelet Count 127 #L Mean Platelet 10.1 Volume Immature 0.600 H Granulocytes % Neutrophils % 58.0 Lymphocytes % 28.9 Monocytes % 11.5 H Eosinophils % 0.8 Basophils % 0.2 Nucleated Red 0.0 Blood Cells % Immature 0.030 Granulocytes # Neutrophils # 2.8 Lymphocytes # 1.4 Monocytes # 0.6 Eosinophils # 0.0 Basophils # 0.0 Nucleated Red 0.0 Blood Cells # Medications Medication Current Medications Acetaminophen (Tylenol Liquid) 650 mg Q6H PRN PO PAIN LEVEL 1-3 OR FEVER; Start 11/04/18 at 06:30 Pantoprazole (Protonix Iv) 40 mg DAILY@06 IV Last administered on 11/05/18 06:33; Admin Dose 40 MG; Start 11/04/18 at 06:00 Heparin Sodium (Porcine) 250 ml @ 20 mls/hr Q24H IV Last administered on 11/04/18at 23:33; Admin Dose 14.5 MLS/HR; Start 11/04/18 at 07:30; Status Hold Heparin Sodium (Porcine) (Heparin (1000 Units/ml)) PRN PRN IV PENDING LAB VALUE; Start 11/04/18 at 07:30; Status Hold Azithromycin 250 ml @ 250 mls/hr Q24H IVPB Last administered on 11/05/18 08:30; Admin Dose 250 MLS/HR; Start 11/04/18 at 08:00 Influenza Virus Vaccine Quadrival (Fluzone) 0.5 ml ONCE ONCE IM* ; Start 11/05/18 at 12:00; Stop 11/05/18 at 12:01; Status Future Hold Miscellaneous Information PLEASE CALL PHARM... NOTE XX ; Start 11/04/18 at 12:00 Metoprolol Tartrate (Lopressor) 25 mg Q8 PO Last administered on 11/05/18 06:33; Admin Dose 25 MG; Start 11/04/18 at 14:00 Diltiazem HCl (Cardizem Iv) 20 mg Q1H PRN IV Sustained HR greater than 130; Start 11/04/18 at 12:30 Aspirin (Aspirin) 81 mg DAILY PO Last administered on 11/05/18at 09:58; Admin Dose 81 MG; Start 11/05/18 at 09:00 Ceftriaxone Sodium 50 ml @ 100 mls/hr Q24H IVPB Last administered on 11/05/18at 09:58; Admin Dose 100 MLS/HR; Start 11/05/18 at 09:00 Vancomycin HCl (Vanco Iv Per Pharmacy) VANCOMYCIN PER PHARM... PER PROTOCOL XX ; Start 11/05/18 at 04:00 MCKENZIE WHEAT Nov 05, 2018 10:38
--- NOTE | 2018-11-05 13:00 | CONS ---
Assessment/Plan Assessment/Plan Hospital Course (Demo Recall) Respiratory failure-off BiPAP Possible pneumonia Preserved ejection fraction Atrial fibrillation with rapid ventricular rates, improved Morbid obesity Acute kidney injury with history of CKD -Respiratory status improved significantly and patient is off BiPAP. Echocardiogram with preserved ejection fraction. -Patient plan for thoracentesis today. Afterwards, would start oral anticoagulant once okay by interventional radiology, patient could be on Eliquis 5 mg p.o. twice daily -Further diuretics as per nephrology Consultation Date/Type/Reason Admit Date/Time Nov 04, 2018 at 05:57 Initial Consult Date 11/04/18 Type of Consult Cardiology Date/Time of Note DATE: 11/05/18 TIME: 12:57 24 HR Interval Summary Free Text/Dictation Shortness of breath is much better. He is off BiPAP. Denies chest pain or palpitations Exam/Review of Systems Vital Signs Vitals Vital Signs Date Temp Pulse Resp B/P (MAP) Pulse Ox O2 O2 Flow FiO2 Time Delivery Rate 11/05/18 74 18 112/84 100 Nasal 10:00 (93) Cannula 11/05/18 3.0 08:00 11/05/18 98.0 08:00 11/05/18 35 05:25 Intake and Output 11/04/18 11/04/18 11/05/18 1515:00 23:00 07:00 IntakeIntake Total 100 ml 218.0 ml 620.5 ml OutputOutput Total 925 ml 550 ml 225 ml BalanceBalance -825 ml -332.0 ml 395.5 ml Exam Constitutional: alert, oriented (No apparent distress, obese, comfortable, speaking in complete sentences) Head: normocephalic Respiratory: other (Coarse breath sounds bilaterally, no wheezing) Cardiovascular: irregular rhythm (S1-S2 heard) Gastrointestinal: soft, non-tender, bowel sounds Extremities: edema Labs Result Diagram: 11/05/18 0436 11/05/18 0435 Results 24hrs Laboratory Tests Test 11/04/18 14:45 11/04/18 17:51 11/04/18 20:15 11/05/18 02:24 Activated > 180.0 *H 92.9 *H 87.5 *H 121.6 *H Partial Thromboplast Time Creatine Kinase 1237 H Creatine Kinase Index 0.4 Creatinine Kinase MB 4.55 H (Mass) Troponin I 0.054 Test 11/05/18 04:31 11/05/18 04:35 11/05/18 04:36 Iron Level 25 L Total Iron Binding 218 L Capacity Percent Iron Saturation 11 L Sodium Level 134 L Potassium Level 4.6 Chloride Level 102 Carbon Dioxide Level 16 L Anion Gap 16 H Blood Urea Nitrogen 53 H Creatinine 4.31 H Est Glomerular Filtrat 14 L Rate mL/min Glucose Level 112 Calcium Level 8.9 Magnesium Level 2.2 Ferritin 442.0 H Creatine Kinase 849 H Triglycerides Level 89 Cholesterol Level 95 L LDL Cholesterol, 47 Calculated HDL Cholesterol 30 Cholesterol/HDL Ratio 3.1 White Blood Count 4.8 # Red Blood Count 5.01 Hemoglobin 12.6 L Hematocrit 39.7 L Mean Corpuscular Volume 79.2 L Mean Corpuscular 25.1 L Hemoglobin Mean Corpuscular 31.7 L Hemoglobin Concent Red Cell Distribution 17.4 H Width Platelet Count 127 #L Mean Platelet Volume 10.1 Immature Granulocytes % 0.600 H Neutrophils % 58.0 Lymphocytes % 28.9 Monocytes % 11.5 H Eosinophils % 0.8 Basophils % 0.2 Nucleated Red Blood 0.0 Cells % Immature Granulocytes # 0.030 Neutrophils # 2.8 Lymphocytes # 1.4 Monocytes # 0.6 Eosinophils # 0.0 Basophils # 0.0 Nucleated Red Blood 0.0 Cells # Medications Medications Current Medications Acetaminophen (Tylenol Liquid) 650 mg Q6H PRN PO PAIN LEVEL 1-3 OR FEVER; Start 11/04/18 at 06:30 Pantoprazole (Protonix Iv) 40 mg DAILY@06 IV Last administered on 11/05/18at 06:33; Admin Dose 40 MG; Start 11/04/18 at 06:00 Heparin Sodium (Porcine) 250 ml @ 20 mls/hr Q24H IV Last administered on 11/04/18at 23:33; Admin Dose 14.5 MLS/HR; Start 11/04/18 at 07:30; Status Hold Heparin Sodium (Porcine) (Heparin (1000 Units/ml)) PRN PRN IV PENDING LAB VALUE; Start 11/04/18 at 07:30; Status Hold Azithromycin 250 ml @ 250 mls/hr Q24H IVPB Last administered on 11/05/18at 08:30; Admin Dose 250 MLS/HR; Start 11/04/18 at 08:00 Miscellaneous Information PLEASE CALL PHARM... NOTE XX ; Start 11/04/18 at 12:00 Metoprolol Tartrate (Lopressor) 25 mg Q8 PO Last administered on 11/05/18at 06:33; Admin Dose 25 MG; Start 11/04/18 at 14:00 Diltiazem HCl (Cardizem Iv) 20 mg Q1H PRN IV Sustained HR greater than 130; Start 11/04/18 at 12:30 Aspirin (Aspirin) 81 mg DAILY PO Last administered on 11/05/18at 09:58; Admin Dose 81 MG; Start 11/05/18 at 09:00 Ceftriaxone Sodium 50 ml @ 100 mls/hr Q24H IVPB Last administered on 11/05/18at 09:58; Admin Dose 100 MLS/HR; Start 11/05/18 at 09:00 Vancomycin HCl (Vanco Iv Per Pharmacy) VANCOMYCIN PER PHARM... PER PROTOCOL XX ; Start 11/05/18 at 04:00 Ferric Sodium Gluconate Complex 125 mg/Sodium Chloride 100 ml @ 100 mls/hr DAILY@1300 IVPB ; Start 11/05/18 at 13:00; Stop 11/07/18 at 13:59 Elio Pino DO Nov 05, 2018 13:00
[2018-11-05] MEDS: SOD FERRIC GLUC COMPLX 125 MG in SOD CHLORIDE 0.9% 100 ML IVPB SCH (13:15)
[2018-11-05] MEDS: APIXABAN 5 MG TABLET PO SCH (21:06)
[2018-11-06] VITALS (23 sets, daily range): BP systolic 101–153; BP diastolic 60–100; PULSE 63–91; RESP 19–28
[2018-11-06] MEDS: METOPROLOL 25 MG TAB PO SCH ×3 (05:02→21:16)
[2018-11-06] MEDS: PANTOPRAZOLE 40 MG INJ IV SCH (05:02)
[2018-11-06] MEDS: ASPIRIN 81 MG TAB PO SCH (08:23)
[2018-11-06] MEDS: APIXABAN 5 MG TABLET PO SCH ×2 (08:23→21:16)
[2018-11-06] MEDS: CEFTRIAXONE 1 GM/50 ML (PMX) 50 ML IVPB SCH (08:23)
--- NOTE | 2018-11-06 09:19 | PN ---
Date/Time of Note Date/Time of Note DATE: 11/06/18 TIME: 09:13 Assessment/Plan VTE Prophylaxis Risk score (from Ns)>0 risk: 6 SCD applied (from [facility]): No SCD contraindicated: patient refusal Pharmacological prophylaxis: heparin Lines/Catheters IV Catheter Type (from [facility]): Peripheral IV Urinary Cath still in place: Yes Reason Cath still needed: urinary retention Assessment/Plan Problems: (1) Acute respiratory failure Status: Acute Comment: He is improving steadily. I believe there is a component of obesity hypoventilation syndrome on top of whatever underlying lung disease he has. In addition he has pulmonary infiltrates and as such quite likely a low-grade pneumonia. He is a little bit large to try and fit into our CT scanner to do more defined testing. Qualifiers: Respiratory failure complication: unspecified whether with hypoxia or hypercapnia Qualified Codes: J96.00 - Acute respiratory failure, unspecified whether with hypoxia or hypercapnia (2) Acute febrile illness Status: Acute Comment: On antibiotics and improving. (3) Atrial fibrillation with RVR Status: Acute Comment: Rate is presently controlled. Heparin. Please note his troponins have been stable and consistent with chronic kidney disease and are not suggestive of an an NSTEMI (4) Obstructive sleep apnea Status: Chronic Comment: He is normally receiving all of his care at the [facility]. I had attempted to call in there to get some old information but was unsuccessful (5) Essential hypertension Status: Chronic Comment: Stable on medication (6) Iron deficiency anemia Status: Chronic Comment: Noted. On iron Qualifiers: Iron deficiency anemia type: unspecified iron deficiency Qualified Codes: D50.9 - Iron deficiency anemia, unspecified (7) Acute kidney injury superimposed on chronic kidney disease Status: Chronic Comment: I called the [facility] to try and get some big look in the computer and give us his old creatinine they were not in a position to offer assistance (8) Morbid obesity due to excess calories Status: Chronic Comment: Calorie restriction diet (9) Elevated CPK Status: Acute Comment: He had been found down I suspect this is a function of rhabdomyolysis. It is steadily decreasing (10) Cholelithiasis Status: Chronic Comment: Noted. Qualifiers: Cholelithiasis location: gallbladder Cholecystitis presence: without cholecystitis Biliary obstruction: without biliary obstruction Qualified Codes: K80.20 - Calculus of gallbladder without cholecystitis without obstruction Result Diagram: 11/06/18 0437 11/06/18436 Results 24hrs Laboratory Tests Test 11/06/18 04:37 White Blood Count 4.8 Red Blood Count 5.02 Hemoglobin 12.7 L Hematocrit 40.1 L Mean Corpuscular Volume 79.9 L Mean Corpuscular Hemoglobin 25.3 L Mean Corpuscular Hemoglobin Concent 31.7 L Red Cell Distribution Width 17.2 H Platelet Count 140 Mean Platelet Volume 10.1 Immature Granulocytes % 0.600 H Neutrophils % 50.0 Segmented Neutrophils % (Manual) 55 Band Neutrophils % (Manual) 1 Lymphocytes % 34.1 Lymphocytes % (Manual) 31 Monocytes % 9.1 Monocytes % (Manual) 7 Eosinophils % 6.0 Eosinophils % (Manual) 5 Basophils % 0.2 Basophils % (Manual) 1 Nucleated Red Blood Cells % 0.0 Immature Granulocytes # 0.030 Neutrophils # 2.4 Neutrophils # (Manual) 2.6 Band Neutrophils # 0.0 Lymphocytes (Manual) 1.4 Lymphocytes # 1.7 Monocytes # 0.4 Monocytes # (Manual) 0.3 Eosinophils # 0.3 Basophils # 0.0 Basophils # (Manual) 0.0 Nucleated Red Blood Cells # 0.0 Platelet Estimate DECREASED Polychromasia 1+ Poikilocytosis 2+ Anisocytosis 1+ Microcytosis 1+ Macrocytosis 1+ Sodium Level 135 Potassium Level 4.2 Chloride Level 104 Carbon Dioxide Level 19 L Anion Gap 12 Blood Urea Nitrogen 59 H Creatinine 4.58 H Est Glomerular Filtrat Rate mL/min 13 L Glucose Level 88 Calcium Level 8.7 Phosphorus Level 5.2 H Magnesium Level 2.3 Subjective 24 Hr Interval Summary Free Text/Dictation Patient reports he is not sure why he needed to come into the intensive care unit. He reports his breathing is doing okay Constitutional: no complaints (Denies fevers chills or sweats) Respiratory: no complaints Cardiovascular: no complaints Gastrointestinal: no complaints Exam/Review of Systems Exam Vitals Vital Signs Date Temp Pulse Resp B/P (MAP) Pulse Ox O2 O2 Flow FiO2 Time Delivery Rate 11/06/18 98.0 70 20 102/80 100 Room Air 08:00 (87) 11/05/18 21 11:30 11/05/18 3.0 08:00 Intake and Output 11/05/18 11/05/18 11/06/18 1515:00 23:00 07:00 IntakeIntake Total 902 ml 720 ml 220 ml OutputOutput Total 550 ml 710 ml 580 ml BalanceBalance 352 ml 10 ml -360 ml Exam Very large gentleman in no geo distress Constitutional: alert, oriented Respiratory: clear to auscultation, normal air movement Cardiovascular: regular rate and rhythm, nl pulses Results Results 24hrs Laboratory Tests Test 11/06/18 04:37 White Blood Count 4.8 Red Blood Count 5.02 Hemoglobin 12.7 L Hematocrit 40.1 L Mean Corpuscular Volume 79.9 L Mean Corpuscular Hemoglobin 25.3 L Mean Corpuscular Hemoglobin Concent 31.7 L Red Cell Distribution Width 17.2 H Platelet Count 140 Mean Platelet Volume 10.1 Immature Granulocytes % 0.600 H Neutrophils % 50.0 Segmented Neutrophils % (Manual) 55 Band Neutrophils % (Manual) 1 Lymphocytes % 34.1 Lymphocytes % (Manual) 31 Monocytes % 9.1 Monocytes % (Manual) 7 Eosinophils % 6.0 Eosinophils % (Manual) 5 Basophils % 0.2 Basophils % (Manual) 1 Nucleated Red Blood Cells % 0.0 Immature Granulocytes # 0.030 Neutrophils # 2.4 Neutrophils # (Manual) 2.6 Band Neutrophils # 0.0 Lymphocytes (Manual) 1.4 Lymphocytes # 1.7 Monocytes # 0.4 Monocytes # (Manual) 0.3 Eosinophils # 0.3 Basophils # 0.0 Basophils # (Manual) 0.0 Nucleated Red Blood Cells # 0.0 Platelet Estimate DECREASED Polychromasia 1+ Poikilocytosis 2+ Anisocytosis 1+ Microcytosis 1+ Macrocytosis 1+ Sodium Level 135 Potassium Level 4.2 Chloride Level 104 Carbon Dioxide Level 19 L Anion Gap 12 Blood Urea Nitrogen 59 H Creatinine 4.58 H Est Glomerular Filtrat Rate mL/min 13 L Glucose Level 88 Calcium Level 8.7 Phosphorus Level 5.2 H Magnesium Level 2.3 Medications Medication Current Medications Acetaminophen (Tylenol Liquid) 650 mg Q6H PRN PO PAIN LEVEL 1-3 OR FEVER; Start 11/04/18 at 06:30 Pantoprazole (Protonix Iv) 40 mg DAILY@06 IV Last administered on 11/06/18at 05:02; Admin Dose 40 MG; Start 11/04/18 at 06:00 Azithromycin 250 ml @ 250 mls/hr Q24H IVPB Last administered on 11/05/18at 08 :30; Admin Dose 250 MLS/HR; Start 11/04/18 at 08:00 Miscellaneous Information PLEASE CALL PHARM... NOTE XX ; Start 11/04/18 at 12:00 Metoprolol Tartrate (Lopressor) 25 mg Q8 PO Last administered on 11/06/18at 05:02; Admin Dose 25 MG; Start 11/04/18 at 14:00 Diltiazem HCl (Cardizem Iv) 20 mg Q1H PRN IV Sustained HR greater than 130; Start 11/04/18 at 12:30 Aspirin (Aspirin) 81 mg DAILY PO Last administered on 11/06/18 08:23; Admin Dose 81 MG; Start 11/05/18 at 09:00 Ceftriaxone Sodium 50 ml @ 100 mls/hr Q24H IVPB Last administered on 11/06/18at 08:23; Admin Dose 100 MLS/HR; Start 11/05/18 at 09:00 Vancomycin HCl (Vanco Iv Per Pharmacy) VANCOMYCIN PER PHARM... PER PROTOCOL XX ; Start 11/05/18 at 04:00 Ferric Sodium Gluconate Complex 125 mg/Sodium Chloride 100 ml @ 100 mls/hr DAILY@1300 IVPB Last administered on 11/05/18at 13:15; Admin Dose 100 MLS/HR; Start 11/05/18 at 13:00; Stop 11/07/18 at 13:59 Apixaban (Eliquis) 5 mg BID PO Last administered on 11/06/18 08:23; Admin Dose 5 MG; Start 11/05/18 at 21:00 RAMON ORANTES MD Nov 06, 2018 09:19
[2018-11-06] MEDS: AZITHROMYCIN 500MG/NS (PMX) 250 ML IVPB SCH (10:10)
--- NOTE | 2018-11-06 10:26 | PN ---
DATE: 11/06/2018 SUBJECTIVE: The patient is currently off BiPAP. Urinary output has been adequate. No other events noted. OBJECTIVE: VITAL SIGNS: Blood pressure is 124/78, pulse 75, respiration 19, temperature 98.0. HEENT: Head is normocephalic. NECK: Supple. HEART: Regular rate. LUNGS: Show diminished breath sounds at the base. ABDOMEN: Soft, nontender to palpation without rebound or guarding. EXTREMITIES: Negative for clubbing, cyanosis. Trace edema. DERMATOLOGIC: No rashes. MUSCULOSKELETAL: No joint effusions. NEUROLOGIC: No change in exam. MEDICATIONS: The patient's medications have been reviewed. LABORATORY DATA: Sodium 135, potassium 4.2, BUN 59, creatinine 4.58. White count 4.8, hemoglobin 12 .7, platelet count is 140. Urinalysis was reviewed, shows a microalbumin creatinine ratio 500 mg per gram of creatinine. The patient's blood cultures are positive. ASSESSMENT AND PLAN: 1. Nonoliguric acute kidney injury on top of chronic kidney disease with unknown baseline creatinine . Etiology of acute kidney injury is multifactorial secondary to hemodynamics, questionable tubular injury. The patient remains in injury phase of acute kidney injury as renal function continues to de mims. The patient has no overt uremic symptoms. Urinary output has been adequate. At this point, would continue current treatment plan, supportive care, renally dose all meds. No immediate need for renal replacement therapy at this time. 2. Hypernatremia, mild, resolved. Continue to monitor. 3. Anemia. Monitor hemoglobin and hematocrit levels. 4. Metabolic acidosis with respiratory compensation. Continue to monitor. 5. Acute respiratory failure. Etiology is likely due to COPD exacerbation. The patient is currentl y off BiPAP. Continue medical management. 6. Atrial fibrillation, rate controlled. Continue current treatment plan. Follow up with cardiolog y. Continue Eliquis. 7. Hypertension. Continue current blood pressure regimen. 8. Pneumonia. Continue current antibiotic regimen. May consider discontinuing vancomycin in the se tting of acute kidney injury. Would recommend just the antibiotics. Will continue to monitor closel y. Dictated By: TOBI FLORES DO NR/NTS Conf#: [id number] DID#: [id number] CC: MANJIT AKBAR MD;*EndCC*
--- NOTE | 2018-11-06 10:39 | CONS ---
Consult Date/Type/Reason Admit Date/Time Nov 04, 2018 at 05:57 Initial Consult Date 11/04/18 Type of Consult Pulmonary Date/Time of Note DATE: 11/06/18 TIME: 10:38 Subjective Patient comfortable this morning. Sitting up in chair on nasal cannula no respiratory distress. Ultrasound demonstrated no significant pleural effusion. No thoracentesis performed. Objective Vital Signs Date Temp Pulse Resp B/P (MAP) Pulse Ox O2 O2 Flow FiO2 Time Delivery Rate 11/06/18 98.1 72 22 127/92 98 Room Air 10:00 (104) 11/05/18 21 11:30 11/05/18 3.0 08:00 Intake and Output 11/05/18 11/05/18 11/06/18 1515:00 23:00 07:00 IntakeIntake Total 902 ml 720 ml 220 ml OutputOutput Total 550 ml 710 ml 580 ml BalanceBalance 352 ml 10 ml -360 ml Exam GENERAL: Well-nourished well-developed gentleman comfortable at rest VITAL SIGNS: per chart NECK: Supple. No JVD or lymphadenopathy. CARDIAC EXAM: S1, S2. No added sounds or murmurs. CHEST: Diminished air entry left lung ABDOMEN: Soft, nontender. No guarding or rebound. EXTREMITIES: No cyanosis, clubbing edema +2 NEUROLOGIC: Generalized weakness. No focal deficits. Vent Setting Fraction of Inspired Oxygen pe: 21 Results/Medications Result Diagram: 11/06/18 0437 11/06/18436 Results 24 hrs Laboratory Tests Test 11/06/18 04:37 White Blood Count 4.8 Red Blood Count 5.02 Hemoglobin 12.7 L Hematocrit 40.1 L Mean Corpuscular Volume 79.9 L Mean Corpuscular Hemoglobin 25.3 L Mean Corpuscular Hemoglobin Concent 31.7 L Red Cell Distribution Width 17.2 H Platelet Count 140 Mean Platelet Volume 10.1 Immature Granulocytes % 0.600 H Neutrophils % 50.0 Segmented Neutrophils % (Manual) 55 Band Neutrophils % (Manual) 1 Lymphocytes % 34.1 Lymphocytes % (Manual) 31 Monocytes % 9.1 Monocytes % (Manual) 7 Eosinophils % 6.0 Eosinophils % (Manual) 5 Basophils % 0.2 Basophils % (Manual) 1 Nucleated Red Blood Cells % 0.0 Immature Granulocytes # 0.030 Neutrophils # 2.4 Neutrophils # (Manual) 2.6 Band Neutrophils # 0.0 Lymphocytes (Manual) 1.4 Lymphocytes # 1.7 Monocytes # 0.4 Monocytes # (Manual) 0.3 Eosinophils # 0.3 Basophils # 0.0 Basophils # (Manual) 0.0 Nucleated Red Blood Cells # 0.0 Platelet Estimate DECREASED Polychromasia 1+ Poikilocytosis 2+ Anisocytosis 1+ Microcytosis 1+ Macrocytosis 1+ Sodium Level 135 Potassium Level 4.2 Chloride Level 104 Carbon Dioxide Level 19 L Anion Gap 12 Blood Urea Nitrogen 59 H Creatinine 4.58 H Est Glomerular Filtrat Rate mL/min 13 L Glucose Level 88 Calcium Level 8.7 Phosphorus Level 5.2 H Magnesium Level 2.3 Medications Current Medications Acetaminophen (Tylenol Liquid) 650 mg Q6H PRN PO PAIN LEVEL 1-3 OR FEVER; Start 11/04/18 at 06:30 Pantoprazole (Protonix Iv) 40 mg DAILY@06 IV Last administered on 11/06/18at 05:02; Admin Dose 40 MG; Start 11/04/18 at 06:00 Azithromycin 250 ml @ 250 mls/hr Q24H IVPB Last administered on 11/06/18at 10:10; Admin Dose 250 MLS/HR; Start 11/04/18 at 08:00 Miscellaneous Information PLEASE CALL PHARM... NOTE XX ; Start 11/04/18 at 12:00 Metoprolol Tartrate (Lopressor) 25 mg Q8 PO Last administered on 11/06/18at 05:02; Admin Dose 25 MG; Start 11/04/18 at 14:00 Diltiazem HCl (Cardizem Iv) 20 mg Q1H PRN IV Sustained HR greater than 130; Start 11/04/18 at 12:30 Aspirin (Aspirin) 81 mg DAILY PO Last administered on 11/06/18at 08:23; Admin Dose 81 MG; Start 11/05/18 at 09:00 Ceftriaxone Sodium 50 ml @ 100 mls/hr Q24H IVPB Last administered on 11/06/18at 08:23; Admin Dose 100 MLS/HR; Start 11/05/18 at 09:00 Vancomycin HCl (Vanco Iv Per Pharmacy) VANCOMYCIN PER PHARM... PER PROTOCOL XX ; Start 11/05/18 at 04:00 Ferric Sodium Gluconate Complex 125 mg/Sodium Chloride 100 ml @ 100 mls/hr DAILY@1300 IVPB Last administered on 11/05/18at 13:15; Admin Dose 100 MLS/HR; Start 11/05/18 at 13:00; Stop 11/07/18 at 13:59 Apixaban (Eliquis) 5 mg BID PO Last administered on 11/06/18at 08:23; Admin Dose 5 MG; Start 11/05/18 at 21:00 Assessment/Plan Hospital Course (Demo Recall) Assessment recommendations; 1. Patient admitted with shortness of breath is likely is due to A. fib with RVR. 2. Possibly underlying chronic renal insufficiency with possibly acute decompensation. 3. Mild metabolic acidosis. 4. Underlying obesity with likely sleep apnea. 5. Possible left effusion versus pneumonia 6. Mild CHF. Plan 1. Continue renal recommendations 2. No evidence of pleural effusion likely compressive atelectasis 3. Decrease supplemental O2 as tolerated 4. PT evaluation 5. Aspiration precautions, incentive spirometry Critical care time 40 minutes Consider transfer to telemetry encourage out of bed SOULEYMANE ORELLANA MD, [facility] Nov 06, 2018 10:39
[2018-11-06] MEDS: SOD FERRIC GLUC COMPLX 125 MG in SOD CHLORIDE 0.9% 100 ML IVPB SCH (12:55)
--- NOTE | 2018-11-06 16:13 | CONS ---
Assessment/Plan Assessment/Plan Hospital Course (Demo Recall) Impression: Afib, now rate controlled Respiratory failure-off BiPAP Possible pneumonia Morbid obesity Acute kidney injury with history of CKD Recommendations: Continue metoprolol, Eliquis Diuresis, renal management per nephrology Dr. Pino to return on Thursday Consultation Date/Type/Reason Admit Date/Time Nov 04, 2018 at 05:57 Initial Consult Date 11/04/18 Type of Consult Cardiology Date/Time of Note DATE: 11/06/18 TIME: 16:08 24 HR Interval Summary Free Text/Dictation Breathing comfortably, no chest pain, no dyspnea, watching TV Exam/Review of Systems Vital Signs Vitals Vital Signs Date Temp Pulse Resp B/P (MAP) Pulse Ox O2 O2 Flow FiO2 Time Delivery Rate 11/06/18 70 12:00 11/06/18 22 120/76 98 Room Air 11:00 (91) 11/06/18 98.1 10:00 11/05/18 21 11:30 11/05/18 3.0 08:00 Intake and Output 11/05/18 11/05/18 11/06/18 1515:00 23:00 07:00 IntakeIntake Total 902 ml 720 ml 220 ml OutputOutput Total 550 ml 710 ml 670 ml BalanceBalance 352 ml 10 ml -450 ml Exam Constitutional: alert, oriented, other (obese) Psych: no complaints, nl mood/affect Head: normocephalic, atraumatic Eyes: nl conjunctiva, nl lids ENMT: nl external ears & nose Neck: No bruits Respiratory: clear to auscultation (anteriorly), normal air movement Cardiovascular: irregular rhythm; No murmurs/extra sounds Gastrointestinal: soft, non-tender Extremities: edema (mild in extremities) Neurological: nl mental status, nl speech Skin: other (darkened skin in legs, scaly skin) Labs Result Diagram: 11/06/187 11/06/18 043 Results 24hrs Laboratory Tests Test 11/06/18 04:37 11/06/18 09:26 11/06/18 10:25 White Blood Count 4.8 Red Blood Count 5.02 Hemoglobin 12.7 L Hematocrit 40.1 L Mean Corpuscular Volume 79.9 L Mean Corpuscular Hemoglobin 25.3 L Mean Corpuscular Hemoglobin Concent 31.7 L Red Cell Distribution Width 17.2 H Platelet Count 140 Mean Platelet Volume 10.1 Immature Granulocytes % 0.600 H Neutrophils % 50.0 Segmented Neutrophils % (Manual) 55 Band Neutrophils % (Manual) 1 Lymphocytes % 34.1 Lymphocytes % (Manual) 31 Monocytes % 9.1 Monocytes % (Manual) 7 Eosinophils % 6.0 Eosinophils % (Manual) 5 Basophils % 0.2 Basophils % (Manual) 1 Nucleated Red Blood Cells % 0.0 Immature Granulocytes # 0.030 Neutrophils # 2.4 Neutrophils # (Manual) 2.6 Band Neutrophils # 0.0 Lymphocytes (Manual) 1.4 Lymphocytes # 1.7 Monocytes # 0.4 Monocytes # (Manual) 0.3 Eosinophils # 0.3 Basophils # 0.0 Basophils # (Manual) 0.0 Nucleated Red Blood Cells # 0.0 Platelet Estimate DECREASED Polychromasia 1+ Poikilocytosis 2+ Anisocytosis 1+ Microcytosis 1+ Macrocytosis 1+ Sodium Level 135 Potassium Level 4.2 Chloride Level 104 Carbon Dioxide Level 19 L Anion Gap 12 Blood Urea Nitrogen 59 H Creatinine 4.58 H Est Glomerular Filtrat Rate mL/min 13 L Glucose Level 88 Calcium Level 8.7 Phosphorus Level 5.2 H Magnesium Level 2.3 Hepatitis B Surface Antigen NEGATIVE Hepatitis C Antibody NEGATIVE D-Dimer 1592.81 #H D-Dimer Comment Medications Medications Current Medications Acetaminophen (Tylenol Liquid) 650 mg Q6H PRN PO PAIN LEVEL 1-3 OR FEVER; Start 11/04/18 at 06:30 Pantoprazole (Protonix Iv) 40 mg DAILY@06 IV Last administered on 11/06/18at 05:02; Admin Dose 40 MG; Start 11/04/18 at 06:00 Azithromycin 250 ml @ 250 mls/hr Q24H IVPB Last administered on 11/06/18at 10:10; Admin Dose 250 MLS/HR; Start 11/04/18 at 08:00 Miscellaneous Information PLEASE CALL PHARM... NOTE XX ; Start 11/04/18 at 12:00 Metoprolol Tartrate (Lopressor) 25 mg Q8 PO Last administered on 11/06/18at 05:02; Admin Dose 25 MG; Start 11/04/18 at 14:00 Diltiazem HCl (Cardizem Iv) 20 mg Q1H PRN IV Sustained HR greater than 130; Start 11/04/18 at 12:30 Aspirin (Aspirin) 81 mg DAILY PO Last administered on 11/06/18at 08:23; Admin Dose 81 MG; Start 11/05/18 at 09:00 Ceftriaxone Sodium 50 ml @ 100 mls/hr Q24H IVPB Last administered on 11/06/18at 08:23; Admin Dose 100 MLS/HR; Start 11/05/18 at 09:00 Vancomycin HCl (Vanco Iv Per Pharmacy) VANCOMYCIN PER PHARM... PER PROTOCOL XX ; Start 11/05/18 at 04:00 Ferric Sodium Gluconate Complex 125 mg/Sodium Chloride 100 ml @ 100 mls/hr DAILY@1300 IVPB Last administered on 11/06/18at 12:55; Admin Dose 100 MLS/HR; Start 11/05/18 at 13:00; Stop 11/07/18 at 13:59 Apixaban (Eliquis) 5 mg BID PO Last administered on 11/06/18at 08:23; Admin Dose 5 MG; Start 11/05/18 at 21:00 Miscellaneous Information (*Rx Drug Level Order Reminder*) VANCO RANDOM @ 0,500 ONCE ONCE XX ; Start 11/07/18 at 05:00; Stop 11/07/18 at 05:01 GUERITA ARIZA Nov 06, 2018 16:13
[2018-11-07] VITALS (16 sets, daily range): BP systolic 99–138; BP diastolic 64–91; PULSE 41–81; RESP 20–22
[2018-11-07] MEDS: METOPROLOL 25 MG TAB PO SCH ×3 (06:13→21:02)
[2018-11-07] MEDS: PANTOPRAZOLE 40 MG INJ IV SCH (06:13)
[2018-11-07] MEDS: CEFTRIAXONE 1 GM/50 ML (PMX) 50 ML IVPB SCH (08:59)
[2018-11-07] MEDS: AZITHROMYCIN 500MG/NS (PMX) 250 ML IVPB SCH (09:00)
[2018-11-07] MEDS: ASPIRIN 81 MG TAB PO SCH (09:00)
[2018-11-07] MEDS: APIXABAN 5 MG TABLET PO SCH ×2 (09:00→21:02)
--- NOTE | 2018-11-07 09:42 | PN ---
DATE: 11/07/2018 SUBJECTIVE: The patient is clinically stable. No events overnight. No fevers, chills, nausea, vomi ting. The patient was transferred from intensive care unit to telemetry. OBJECTIVE: VITAL SIGNS: Blood pressure is 133/68, pulse 73, respiration 20, temperature 97.4. HEENT: Head is normocephalic. NECK: Supple. HEART: Regular rate. LUNGS: Show diminished breath sounds at the base. ABDOMEN: Soft, nontender to palpation without rebound or guarding. EXTREMITIES: Negative for clubbing, cyanosis. Trace edema. DERMATOLOGIC: No rashes. MUSCULOSKELETAL: No joint effusions. NEUROLOGIC: No change in exam. MEDICATIONS: Reviewed. LABORATORY DATA: Shows sodium 139, potassium 3.8, BUN 59, creatinine 3.97. White count 5.3, hemoglo bin 12.2, platelet count is 148. ASSESSMENT AND PLAN: 1. Nonoliguric acute kidney injury on top of chronic kidney disease with unknown baseline creatinine . Etiology of acute kidney injury is multifactorial secondary to hemodynamics, possible tubular inju ry. The patient appears to have entered a maintenance and/or recovery phase of acute kidney injury a s renal function has stabilized in the last 24 hours. At this point, would continue current treatmen t plan, supportive care, renally dose all meds. The patient has no overt uremic symptoms. No immedi ate need for renal replacement therapy. 2. Chronic kidney disease. The patient's renal ultrasound shows atrophic right kidney. Underlying etiology may be secondary to longstanding hypertension, possible previous nephrotoxic exposure. The patient's urinalysis was bland. Currently, would continue to treat acute kidney injury as stated abo ve. Would otherwise continue disease factor modification. Further evaluation including SPEP, UPEP i mmunofixation will be sent out. Will monitor closely. 3. Hyponatremia, resolved. 4. Anemia. Monitor hemoglobin and hematocrit levels. 5. Metabolic acidosis with respiratory compensation. Continue to monitor. 6. Acute respiratory failure, etiology secondary to chronic obstructive pulmonary disease exacerbati on. Continue medical management. 7. Atrial fibrillation, rate controlled. Continue current treatment. 8. Hypertension. Continue current blood pressure regimen. 9. Pneumonia. The patient on antibiotic therapy, monitor closely on vancomycin. Consider adjusting antibiotic regimen, possibly discontinue vancomycin if possible. Dictated By: TOBI OBRIEN/YAMILKA Conf#: [id number] [facility]#: [id number] CC: MANJIT AKBAR MD; DIANA KWOK DO;*[facility]*
--- NOTE | 2018-11-07 10:48 | CONS ---
Consult Date/Type/Reason Admit Date/Time Nov 04, 2018 at 05:57 Initial Consult Date 11/04/18 Type of Consult Pulmonary Date/Time of Note DATE: 11/07/18 TIME: 10:47 Subjective Patient stable this morning. States his breathing has improved. Objective Vital Signs Date Temp Pulse Resp B/P (MAP) Pulse Ox O2 O2 Flow FiO2 Time Delivery Rate 11/07/18 97.4 73 20 133/68 98 Room Air 08:09 (89) 11/07/18 30 06:18 11/05/18 3.0 08:00 Intake and Output 11/06/18 11/06/18 11/07/18 1515:00 23:00 07:00 IntakeIntake Total 220 ml 300 ml OutputOutput Total 780 ml 530 ml 850 ml BalanceBalance -560 ml -530 ml -550 ml Exam GENERAL: Well-nourished well-developed gentleman comfortable at rest VITAL SIGNS: per chart NECK: Supple. No JVD or lymphadenopathy. CARDIAC EXAM: S1, S2. No added sounds or murmurs. CHEST: Diminished air entry left lung, Rales left lung. ABDOMEN: Soft, nontender. No guarding or rebound. EXTREMITIES: No cyanosis, clubbing edema +2 NEUROLOGIC: Generalized weakness. No focal deficits. Vent Setting Fraction of Inspired Oxygen pe: 21 Results/Medications Result Diagram: 11/07/1821 11/07/18 0521 Results 24 hrs Laboratory Tests Test 11/07/18 05:21 White Blood Count 5.3 Red Blood Count 4.87 Hemoglobin 12.2 L Hematocrit 39.3 L Mean Corpuscular Volume 80.7 L Mean Corpuscular Hemoglobin 25.1 L Mean Corpuscular Hemoglobin Concent 31.0 L Red Cell Distribution Width 17.2 H Platelet Count 148 Mean Platelet Volume 9.9 Immature Granulocytes % 0.800 H Neutrophils % 50.7 Segmented Neutrophils % (Manual) 56 Band Neutrophils % (Manual) 1 Lymphocytes % 37.0 Lymphocytes % (Manual) 34 Reactive Lymphocytes % (Manual) 1 H Monocytes % 6.2 Monocytes % (Manual) 3 Eosinophils % 4.9 Eosinophils % (Manual) 4 Basophils % 0.4 Basophils % (Manual) 1 Nucleated Red Blood Cells % 0.0 Immature Granulocytes # 0.040 H Neutrophils # 2.7 Neutrophils # (Manual) 3.0 Band Neutrophils # 0.0 Lymphocytes (Manual) 1.8 Lymphocytes # 2.0 Reactive Lymphocytes # 0.0 Monocytes # 0.3 Monocytes # (Manual) 0.1 L Eosinophils # 0.3 Basophils # 0.0 Basophils # (Manual) 0.0 Nucleated Red Blood Cells # 0.0 Platelet Estimate NORMAL Giant Platelets 1 H Polychromasia 1+ Poikilocytosis 1+ Anisocytosis 1+ Microcytosis 1+ Ovalocytes 1+ Sodium Level 139 Potassium Level 3.8 Chloride Level 108 Carbon Dioxide Level 19 L Anion Gap 12 Blood Urea Nitrogen 59 H Creatinine 3.97 H Est Glomerular Filtrat Rate mL/min 15 L Glucose Level 118 Calcium Level 8.8 Phosphorus Level 4.3 Magnesium Level 2.4 Random Vancomycin Level 9.7 Medications Current Medications Acetaminophen (Tylenol Liquid) 650 mg Q6H PRN PO PAIN LEVEL 1-3 OR FEVER; Start 11/04/18 at 06:30 Pantoprazole (Protonix Iv) 40 mg DAILY@06 IV Last administered on 11/07/18at 06:13; Admin Dose 40 MG; Start 11/04/18 at 06:00 Azithromycin 250 ml @ 250 mls/hr Q24H IVPB Last administered on 11/07/18at 09:00; Admin Dose 250 MLS/HR; Start 11/04/18 at 08:00 Miscellaneous Information PLEASE CALL PHARM... NOTE XX ; Start 11/04/18 at 12:00 Metoprolol Tartrate (Lopressor) 25 mg Q8 PO Last administered on 11/07/18at 06:13; Admin Dose 25 MG; Start 11/04/18 at 14:00 Diltiazem HCl (Cardizem Iv) 20 mg Q1H PRN IV Sustained HR greater than 130; Start 11/04/18 at 12:30 Aspirin (Aspirin) 81 mg DAILY PO Last administered on 11/07/18at 09:00; Admin Dose 81 MG; Start 11/05/18 at 09:00 Ceftriaxone Sodium 50 ml @ 100 mls/hr Q24H IVPB Last administered on 11/07/18at 08:59; Admin Dose 100 MLS/HR; Start 11/05/18 at 09:00 Vancomycin HCl (Vanco Iv Per Pharmacy) VANCOMYCIN PER PHARM... PER PROTOCOL XX ; Start 11/05/18 at 04:00 Ferric Sodium Gluconate Complex 125 mg/Sodium Chloride 100 ml @ 100 mls/hr CELESTE Y@1300 IVPB Last administered on 11/06/18at 12:55; Admin Dose 100 MLS/HR; Start 11/05/18 at 13:00; Stop 11/07/18 at 13:59 Apixaban (Eliquis) 5 mg BID PO Last administered on 11/07/18at 09:00; Admin Dose 5 MG; Start 11/05/18 at 21:00 Vancomycin HCl 1.5 gm/Sodium Chloride 250 ml @ 83.333 mls/ hr ONCE ONCE IVPB ; Start 11/07/18 at 13:00; Stop 11/07/18 at 15:59 Assessment/Plan Hospital Course (Demo Recall) Assessment recommendations; 1. Patient admitted with shortness of breath is likely is due to A. fib with RVR. 2. Possibly underlying chronic renal insufficiency with possibly acute decompensation. 3. Mild metabolic acidosis. 4. Underlying obesity with likely sleep apnea. 5. Possible left effusion versus pneumonia 6. Mild CHF. Plan 1. Continue renal recommendations 2. No evidence of pleural effusion likely compressive atelectasis 3. Decrease supplemental O2 as tolerated 4. PT evaluation 5. Aspiration precautions, incentive spirometry Discussed with staff encouraged ambulation. SOULEYMANE ORELLANA MD, [facility] Nov 07, 2018 10:48
--- NOTE | 2018-11-07 12:07 | PN ---
Date/Time of Note Date/Time of Note DATE: 11/07/18 TIME: 12:01 Assessment/Plan VTE Prophylaxis Risk [place] ([place] [facility] [place]0 risk: 7 SCD applied (from [facility] [place] No SCD contraindicated: patient refusal Pharmacological prophylaxis: heparin Lines/Catheters IV Catheter Type (from [facility]): Peripheral IV Urinary Cath still in place: Yes Reason Cath still needed: urinary retention Assessment/Plan Problems: (1) Acute respiratory failure Status: Acute Comment: Improved. Please note there is a current component of volume overload here. Continue with antibiotic therapy Qualifiers: Respiratory failure complication: unspecified whether with hypoxia or hypercapnia Qualified Codes: J96.00 - Acute respiratory failure, unspecified whether with hypoxia or hypercapnia (2) Atrial fibrillation with RVR Status: Acute Comment: Adequately controlled (3) Obstructive sleep apnea Status: Chronic Comment: Nocturnal BiPAP (4) Essential hypertension Status: Chronic Comment: Adequate control (5) Iron deficiency anemia Status: Chronic Comment: Receiving supplementation Qualifiers: Iron deficiency anemia type: unspecified iron deficiency Qualified Codes: D50.9 - Iron deficiency anemia, unspecified (6) Acute kidney injury superimposed on chronic kidney disease Status: Chronic Comment: Again this is slightly improved. We have no idea what his baseline is despite having attempted to reach out to our colleagues at the [place] system (7) Morbid obesity due to excess calories Status: Chronic Comment: Calorie restriction diet (8) Elevated CPK Status: Acute Comment: Recheck in morning. I believe this is due to rhabdomyolysis Result Diagram: 11/07/18 0521 11/07/18 0521 Results 24hrs Laboratory Tests Test 11/07/18 05:21 White Blood Count 5.3 Red Blood Count 4.87 Hemoglobin 12.2 L Hematocrit 39.3 L Mean Corpuscular Volume 80.7 L Mean Corpuscular Hemoglobin 25.1 L Mean Corpuscular Hemoglobin Concent 31.0 L Red Cell Distribution Width 17.2 H Platelet Count 148 Mean Platelet Volume 9.9 Immature Granulocytes % 0.800 H Neutrophils % 50.7 Segmented Neutrophils % (Manual) 56 Band Neutrophils % (Manual) 1 Lymphocytes % 37.0 Lymphocytes % (Manual) 34 Reactive Lymphocytes % (Manual) 1 H Monocytes % 6.2 Monocytes % (Manual) 3 Eosinophils % 4.9 Eosinophils % (Manual) 4 Basophils % 0.4 Basophils % (Manual) 1 Nucleated Red Blood Cells % 0.0 Immature Granulocytes # 0.040 H Neutrophils # 2.7 Neutrophils # (Manual) 3.0 Band Neutrophils # 0.0 Lymphocytes (Manual) 1.8 Lymphocytes # 2.0 Reactive Lymphocytes # 0.0 Monocytes # 0.3 Monocytes # (Manual) 0.1 L Eosinophils # 0.3 Basophils # 0.0 Basophils # (Manual) 0.0 Nucleated Red Blood Cells # 0.0 Platelet Estimate NORMAL Giant Platelets 1 H Polychromasia 1+ Poikilocytosis 1+ Anisocytosis 1+ Microcytosis 1+ Ovalocytes 1+ Sodium Level 139 Potassium Level 3.8 Chloride Level 108 Carbon Dioxide Level 19 L Anion Gap 12 Blood Urea Nitrogen 59 H Creatinine 3.97 H Est Glomerular Filtrat Rate mL/min 15 L Glucose Level 118 Calcium Level 8.8 Phosphorus Level 4.3 Magnesium Level 2.4 Random Vancomycin Level 9.7 Subjective 24 Hr Interval Summary Free Text/Dictation Patient is concerned that [facility] get [facility] this [facility]. Constitutional: no complaints Respiratory: shortness of breath (Improved) Cardiovascular: no complaints Gastrointestinal: no complaints Genitourinary: no complaints Exam/Review of Systems Exam Vitals Vital Signs Date Temp Pulse Resp B/P (MAP) Pulse Ox O2 O2 Flow FiO2 Time Delivery Rate 11/07/18 97.2 63 20 99/64 (76) 96 Room Air 11:47 11/07/18 30 06:18 11/05/18 3.0 08:00 Intake and Output 11/06/18 11/06/18 11/07/18 1515:00 23:00 07:00 IntakeIntake Total 220 ml 300 ml OutputOutput Total 780 ml 530 ml 850 ml BalanceBalance -560 ml -530 ml -550 ml Constitutional: alert, oriented Respiratory: crackles/rales, wheezing Cardiovascular: regular rate and rhythm, nl pulses Gastrointestinal: soft, nl liver, spleen, non-tender Results Results 24hrs Laboratory Tests Test 11/07/18 05:21 White Blood Count 5.3 Red Blood Count 4.87 Hemoglobin 12.2 L Hematocrit 39.3 L Mean Corpuscular Volume 80.7 L Mean Corpuscular Hemoglobin 25.1 L Mean Corpuscular Hemoglobin Concent 31.0 L Red Cell Distribution Width 17.2 H Platelet Count 148 Mean Platelet Volume 9.9 Immature Granulocytes % 0.800 H Neutrophils % 50.7 Segmented Neutrophils % (Manual) 56 Band Neutrophils % (Manual) 1 Lymphocytes % 37.0 Lymphocytes % (Manual) 34 Reactive Lymphocytes % (Manual) 1 H Monocytes % 6.2 Monocytes % (Manual) 3 Eosinophils % 4.9 Eosinophils % (Manual) 4 Basophils % 0.4 Basophils % (Manual) 1 Nucleated Red Blood Cells % 0.0 Immature Granulocytes # 0.040 H Neutrophils # 2.7 Neutrophils # (Manual) 3.0 Band Neutrophils # 0.0 Lymphocytes (Manual) 1.8 Lymphocytes # 2.0 Reactive Lymphocytes # 0.0 Monocytes # 0.3 Monocytes # (Manual) 0.1 L Eosinophils # 0.3 Basophils # 0.0 Basophils # (Manual) 0.0 Nucleated Red Blood Cells # 0.0 Platelet Estimate NORMAL Giant Platelets 1 H Polychromasia 1+ Poikilocytosis 1+ Anisocytosis 1+ Microcytosis 1+ Ovalocytes 1+ Sodium Level 139 Potassium Level 3.8 Chloride Level 108 Carbon Dioxide Level 19 L Anion Gap 12 Blood Urea Nitrogen 59 H Creatinine 3.97 H Est Glomerular Filtrat Rate mL/min 15 L Glucose Level 118 Calcium Level 8.8 Phosphorus Level 4.3 Magnesium Level 2.4 Random Vancomycin Level 9.7 Medications Medication Current Medications Acetaminophen (Tylenol Liquid) 650 mg Q6H PRN PO PAIN LEVEL 1-3 OR FEVER; Start 11/04/18 at 06:30 Pantoprazole (Protonix Iv) 40 mg DAILY@06 IV Last administered on 11/07/18at 06:13; Admin Dose 40 MG; Start 11/04/18 at 06:00 Azithromycin 250 ml @ 250 mls/hr Q24H IVPB Last administered on 11/07/18at 09:00; Admin Dose 250 MLS/HR; Start 11/04/18 at 08:00 Miscellaneous Information PLEASE CALL PHARM... NOTE XX ; Start 11/04/18 at 12:00 Metoprolol Tartrate (Lopressor) 25 mg Q8 PO Last administered on 11/07/18at 06:13; Admin Dose 25 MG; Start 11/04/18 at 14:00 Diltiazem HCl (Cardizem Iv) 20 mg Q1H PRN IV Sustained HR greater than 130; Start 11/04/18 at 12:30 Aspirin (Aspirin) 81 mg DAILY PO Last administered on 11/07/18at 09:00; Admin Dose 81 MG; Start 11/05/18 at 09:00 Ceftriaxone Sodium 50 ml @ 100 mls/hr Q24H IVPB Last administered on 11/07/18at 08:59; Admin Dose 100 MLS/HR; Start 11/05/18 at 09:00 Vancomycin HCl (Vanco Iv Per Pharmacy) VANCOMYCIN PER PHARM... PER PROTOCOL XX ; Start 11/05/18 at 04:00 Ferric Sodium Gluconate Complex 125 mg/Sodium Chloride 100 ml @ 100 mls/hr DAILY@1300 IVPB Last administered on 11/06/18at 12:55; Admin Dose 100 MLS/HR; Start 11/05/18 at 13:00; Stop 11/07/18 at 13:59 Apixaban (Eliquis) 5 mg BID PO Last administered on 11/07/18at 09:00; Admin Dose 5 MG; Start 11/05/18 at 21:00 Vancomycin HCl 1.5 gm/Sodium Chloride 250 ml @ 83.333 mls/ hr ONCE ONCE IVPB ; Start 11/07/18 at 13:00; Stop 11/07/18 at 15:59 RAMON ORANTES MD Nov 07, 2018 12:07
[2018-11-07] MEDS ORDERED: VANCOMYCIN HCL 1.5 GM in SOD CHLORIDE 0.9% 250 ML IVPB ONE (13:00)
[2018-11-07] MEDS: SOD FERRIC GLUC COMPLX 125 MG in SOD CHLORIDE 0.9% 100 ML IVPB SCH (15:06)
[2018-11-08] VITALS (14 sets, daily range): BP systolic 125–169; BP diastolic 66–98; PULSE 61–79; RESP 18–20
[2018-11-08] MEDS: METOPROLOL 25 MG TAB PO SCH ×2 (06:18→13:28)
[2018-11-08] MEDS: PANTOPRAZOLE 40 MG INJ IV SCH (06:18)
[2018-11-08] MEDS: APIXABAN 5 MG TABLET PO SCH ×2 (08:54→22:23)
[2018-11-08] MEDS: ASPIRIN 81 MG TAB PO SCH (08:54)
[2018-11-08] MEDS: AZITHROMYCIN 500MG/NS (PMX) 250 ML IVPB SCH (08:54)
[2018-11-08] MEDS: CEFTRIAXONE 1 GM/50 ML (PMX) 50 ML IVPB SCH (09:09)
--- NOTE | 2018-11-08 09:51 | PN ---
DATE: 11/08/2018 SUBJECTIVE: The patient is stable, no events overnight. No fevers, chills, nausea, or vomiting. OBJECTIVE: VITAL SIGNS: Blood pressure is 134/66, pulse 71, respirations 19, temperature 97.7. HEENT: Head is normocephalic. NECK: Supple. HEART: Regular rate. LUNGS: Show diminished breath sounds at the base. ABDOMEN: Soft, nontender to palpation without rebound or guarding. EXTREMITIES: Negative for clubbing, cyanosis. Trace edema. DERMATOLOGIC: No rashes. MUSCULOSKELETAL: No joint effusion. NEUROLOGIC: No change in exam. MEDICATIONS: Reviewed. LABORATORY DATA: Shows sodium 139, potassium 3.7, BUN 48, creatinine 2.49. White count 5.4, hemoglo bin 12.3, platelet count is 166. ASSESSMENT AND PLAN: 1. Nonoliguric acute kidney injury on top of chronic kidney disease with unknown baseline creatinine . Etiology is multifactorial secondary to hemodynamics, possible tubular injury. The patient appear s to be in recovery phase of acute tubular injury. His renal function has improved in the last 48 ho urs. We will continue current treatment plan, supportive care, renally dose all medicines. 2. Chronic kidney disease. The patient has noted atrophic right kidney. Etiology may be secondary to longstanding hypertension, possible previous nephrotoxic exposure. The patient is currently in ac jil kidney injury as stated above. We would continue. Otherwise, continue disease factor modificati on. 3. Hypernatremia, resolved. 4. Anemia. Continue to monitor hemoglobin and hematocrit levels. 5. Metabolic acidosis with respiratory compensation. Continue to monitor. 6. Acute respiratory failure secondary to chronic obstructive pulmonary disease exacerbation. Freddie nue current treatment plan. 7. Atrial fibrillation, rate controlled. Continue current medical management. 8. Hypertension. Continue current blood pressure regimen. 9. Pneumonia. The patient is completing antibiotic course. Dictated By: TOBI FLORES DO NR/NTS Conf#: [id number] DID#: [id number] CC: MANJIT AKBAR MD; DIANA KWOK DO;*EndCC*
--- NOTE | 2018-11-08 09:57 | CONS ---
Assessment/Plan Assessment/Plan Assessment/Plan (Daily) Assessment recommendations; 1. Patient admitted with shortness of breath due to A. fib with RVR clinically improving. 2. Left lower lobe pneumonia, currently on appropriate antimicrobial regimen. 3. Chronic renal insufficiency. Possibly with some element of acute decompensation. 4. Cardiomegaly with some component of CHF as well. Decompensated by episode of A. fib with RVR. 5. Likely underlying sleep apnea. Patient maintained on nocturnal BiPAP. Continue current supportive care. Obtain follow-up chest x-ray. Further recommendations once chest x-ray is obtained. Consultation Date/Type/Reason Admit Date/Time Nov 04, 2018 at 05:57 Initial Consult Date 11/04/18 Type of Consult Pulmonary/critical care Patient is a 68-year-old male who came into the emergency room with complaints of shortness of breath. Patient was found to be in atrial fibrillation with rapid ventricular response. Patient has been started on intravenous heparin by protocol and now transferred to ICU for further care. Patient is completely awake and alert and was able to talk despite being on BiPAP. According to him he is feeling much better since admission. Denies any chest pain, wheezing, cough. Sputum production. Past medical history; 1. Likely underlying sleep apnea. 2. Chronic lower extremity cellulitis. 3. Possibly chronic renal insufficiency. Medications; reviewed. Allergies; none. Social history; patient never smoked. Occupational history; patient is on disability. Has had miscellaneous occupations. Family history; noncontributory. Review of systems; denies any headache, seizures. Any chest pain. Angina. Shortness of breath has improved. Complains of very scant cough without any sputum production. Denies any fever or chills. Denies any abdominal pain, nausea vomiting. Any melena or hematochezia. Any diarrhea. Complains of chronic lower extremity edema. Complains of chronic orthopnea. Chronic dyspnea on exertion. Complains of snoring and excessive daytime sleepiness. General exam; elderly male, morbidly obese, on BiPAP. Awake and alert. Currently in no distress. Date/Time of Note DATE: 11/08/18 TIME: 09:55 24 HR Interval Summary Free Text/Dictation Patient's condition is stable. Remains awake and alert. Denies any shortness of breath at rest. Patient also able to ambulate in the room. General exam; elderly male, morbidly obese, awake alert, currently no distress. Exam/Review of Systems Exam Vitals Vital Signs Date Temp Pulse Resp B/P (MAP) Pulse Ox O2 O2 Flow FiO2 Time Delivery Rate 11/08/18 97.7 71 19 134/66 97 Room Air 07:17 (88) 11/08/18 30 05:54 11/05/18 3.0 08:00 Intake and Output 11/07/18 11/07/18 11/08/18 1515:00 23:00 07:00 IntakeIntake Total 300 ml 2510 ml 500 ml OutputOutput Total 1150 ml 1450 ml BalanceBalance 300 ml 1360 ml -950 ml Exam HEENT exam; supple neck, JVD difficult to see because of presence of lyles. The patient is having multiple carious teeth. No neck masses. No lymphadenopathy. Chest exam; diminished but clear breath sounds. S1-S2 audible, no murmurs. Regular rhythm. Abdomen exam; soft, protuberant. Nontender. Bowel sounds audible. Or ganomegaly difficult to assess because of body habitus. Extremity exam; no peripheral edema or clubbing. [employer] exam; no focal deficit. Results Result Diagram: 11/08/18 0555 11/08/18 0555 Results 24hrs Laboratory Tests Test 11/08/18 05:55 11/08/18 08:00 White Blood Count 5.4 Red Blood Count 4.94 Hemoglobin 12.3 L Hematocrit 39.7 L Mean Corpuscular Volume 80.4 L Mean Corpuscular Hemoglobin 24.9 L Mean Corpuscular Hemoglobin Concent 31.0 L Red Cell Distribution Width 17.2 H Platelet Count 166 Mean Platelet Volume 10.5 H Immature Granulocytes % 0.900 H Neutrophils % 50.1 Lymphocytes % 38.0 Monocytes % 5.8 Eosinophils % 4.6 Basophils % 0.6 Nucleated Red Blood Cells % 0.0 Immature Granulocytes # 0.050 H Neutrophils # 2.7 Lymphocytes # 2.1 Monocytes # 0.3 Eosinophils # 0.3 Basophils # 0.0 Nucleated Red Blood Cells # 0.0 Sodium Level 139 Potassium Level 3.7 Chloride Level 110 Carbon Dioxide Level 17 L Anion Gap 12 Blood Urea Nitrogen 48 #H Creatinine 3.49 H Est Glomerular Filtrat Rate mL/min 18 L Glucose Level 115 Calcium Level 8.7 Creatine Kinase 103 Creatine Kinase Index 1.3 Creatinine Kinase MB (Mass) 1.35 Troponin I 0.012 Blood Gas Specimen Source Blood arterial Arterial Blood Date Drawn 11/08/2018 8:40:44 AM Arterial Blood pH (Temp corrected) 7.347 L Arterial Blood pCO2 (Temp correct) 28.8 L Arterial Blood pO2 (Temp corrected) 97.6 Arterial Blood HCO3 15.4 L Arterial Blood Base Excess -8.8 L Arterial Blood Oxygen Saturation 97.3 [place] Test ACCEPTAB Arterial Blood Gas Puncture Site Right Radial Arterial Blood Carboxyhemoglobin 0.4 Arterial Blood Methemoglobin 0.2 Blood Gas A-a O2 Differential 17.6 Oxyhemoglobin Percent 96.7 Blood Gas Temperature 37.0 Blood Gas Modality ROOM AIR FiO2 21.0 Blood Gas Notified Whom TM Blood Gas Notified Time 11/08/2018 8:50:22 AM Medications Medication Current Medications Acetaminophen (Tylenol Liquid) 650 mg Q6H PRN PO PAIN LEVEL 1-3 OR FEVER; Start 11/04/18 at 06:30 Pantoprazole (Protonix Iv) 40 mg DAILY@06 IV Last administered on 11/08/18at 0 6:18; Admin Dose 40 MG; Start 11/04/18 at 06:00 Azithromycin 250 ml @ 250 mls/hr Q24H IVPB Last administered on 11/08/18at 08:54; Admin Dose 250 MLS/HR; Start 11/04/18 at 08:00 Miscellaneous Information PLEASE CALL PHARM... NOTE XX ; Start 11/04/18 at 12:00 Metoprolol Tartrate (Lopressor) 25 mg Q8 PO Last administered on 11/08/18at 06:18; Admin Dose 25 MG; Start 11/04/18 at 14:00 Diltiazem HCl (Cardizem Iv) 20 mg Q1H PRN IV Sustained HR greater than 130; Start 11/04/18 at 12:30 Aspirin (Aspirin) 81 mg DAILY PO Last administered on 11/08/18at 08:54; Admin Dose 81 MG; Start 11/05/18 at 09:00 Ceftriaxone Sodium 50 ml @ 100 mls/hr Q24H IVPB Last administered on 11/08/18at 09:09; Admin Dose 100 MLS/HR; Start 11/05/18 at 09:00 Vancomycin HCl (Vanco Iv Per Pharmacy) VANCOMYCIN PER PHARM... PER PROTOCOL XX ; Start 11/05/18 at 04:00 Apixaban (Eliquis) 5 mg BID PO Last administered on 11/08/18at 08:54; Admin Dose 5 MG; Start 11/05/18 at 21:00 ANDREAS WING 11, 2019 09:57
--- NOTE | 2018-11-08 11:18 | PN ---
Date/Time of Note Date/Time of Note DATE: 11/08/18 TIME: 11:17 Assessment/Plan VTE Prophylaxis Risk score (from Ns)>0 risk: 6 SCD applied (from Ns): No SCD contraindicated: other Pharmacological prophylaxis: apixaban Lines/Catheters IV Catheter Type (from [facility]): Peripheral IV Urinary Cath still in place: No Assessment/Plan Hospital Course SUBJECTIVE: no acute overnight episodes. OBJECTIVE: Vital signs-see below PHYSICAL EXAM: Constitutional: morbidly obese male, not in acute distress. Psych: nl mood/affect, no complaints Head: atraumatic, normocephalic Eyes: nl conjunctiva, nl sclera ENMT: Hard of hearing. Mucosa pink and moist, nl external ears & nose Neck: non-tender, supple Respiratory: Diminished bibasilar. normal air movement Cardiovascular: nl pulses, regular rate and rhythm Gastrointestinal: non-tender, soft, bowel sounds active in all 4 quadrants. Musculoskeletal/extremities:+chronic hyperpigmentation/venous stasis changes. + Edema. No focal deficit. Normal pulses,no cyanosis Neurological: Alert oriented 3,nl speech, nl strength Skin: nl turgor ASSESSMENT/PLAN:68-year-old morbidly obese male w/afib,venous stasis ulcers,htn, admitted w/resp distress found to have RVR/,resp fx 1. Acute hypoxemic respiratory failure, likely multifactorial with A. fib/RVR/DD/Obesity induced hypoventilation/pneumonia. -Clinically improved. -Continue PRN breathing treatments. -Continue titrating off oxygen to keep saturation above 92%. -Follow pulmonary recommendations. 2. Community-acquired pneumonia. -Stable. -On appropriate antimicrobials. 3. A. fib w/RVR -now stable -con. THALIA chang 4. Acute kidney injury on chronic kidney disease -managment per nephro -Avoid nephrotoxic drugs as much as possible, Renally dose all meds. Serial labs. 5. Obesity/obstructive sleep apnea -rec oupt pulmonary f/u, sleep study 6. Dastolic dysfunction w/preserved EF -cont.BB -mgmt pe rcards 7. Venous stasis -cont.asa -elevate 8. Hypertension -stable cont.antihypertensives 9. Debility -Patient would benefit from ECF -PT 10. Morbid obesity. -Weight Reduction advised. Dispo: DC planning to group home facility. Patient is seen in collaboration with Dr. Lamar. Result Diagram: 11/08/18 0555 11/08/18 0555 Results 24hrs Laboratory Tests Test 11/08/18 05:55 11/08/18 08:00 White Blood Count 5.4 Red Blood Count 4.94 Hemoglobin 12.3 L Hematocrit 39.7 L Mean Corpuscular Volume 80.4 L Mean Corpuscular Hemoglobin 24.9 L Mean Corpuscular Hemoglobin Concent 31.0 L Red Cell Distribution Width 17.2 H Platelet Count 166 Mean Platelet Volume 10.5 H Immature Granulocytes % 0.900 H Neutrophils % 50.1 Lymphocytes % 38.0 Monocytes % 5.8 Eosinophils % 4.6 Basophils % 0.6 Nucleated Red Blood Cells % 0.0 Immature Granulocytes # 0.050 H Neutrophils # 2.7 Lymphocytes # 2.1 Monocytes # 0.3 Eosinophils # 0.3 Basophils # 0.0 Nucleated Red Blood Cells # 0.0 Sodium Level 139 Potassium Level 3.7 Chloride Level 110 Carbon Dioxide Level 17 L Anion Gap 12 Blood Urea Nitrogen 48 #H Creatinine 3.49 H Est Glomerular Filtrat Rate mL/min 18 L Glucose Level 115 Calcium Level 8.7 Creatine Kinase 103 Creatine Kinase Index 1.3 Creatinine Kinase MB (Mass) 1.35 Troponin I 0.012 Blood Gas Specimen Source Blood arterial Arterial Blood Date Drawn 11/08/2018 8:40:44 AM Arterial Blood pH (Temp corrected) 7.347 L Arterial Blood pCO2 (Temp correct) 28.8 L Arterial Blood pO2 (Temp corrected) 97.6 Arterial Blood HCO3 15.4 L Arterial Blood Base Excess -8.8 L Arterial Blood Oxygen Saturation 97.3 [place] Test ACCEPTAB Arterial Blood Gas Puncture Site Right Radial Arterial Blood Carboxyhemoglobin 0.4 Arterial Blood Methemoglobin 0.2 Blood Gas A-a O2 Differential 17.6 Oxyhemoglobin Percent 96.7 Blood Gas Temperature 37.0 Blood Gas Modality ROOM AIR FiO2 21.0 Blood Gas Notified Whom TM Blood Gas Notified Time 11/08/2018 8:50:22 AM Exam/Review of Systems Exam Vitals Vital Signs Date Temp Pulse Resp B/P (MAP) Pulse Ox O2 O2 Flow FiO2 Time Delivery Rate 11/08/18 97.7 71 19 134/66 97 Room Air 07:17 (88) 11/08/18 30 05:54 11/05/18 3.0 08:00 Intake and Output 11/07/18 11/07/18 11/08/18 1414:59 22:59 06:59 IntakeIntake Total 300 ml 2510 ml 500 ml OutputOutput Total 1150 ml 1450 ml BalanceBalance 300 ml 1360 ml -950 ml Results Results 24hrs Laboratory Tests Test 11/08/18 05:55 11/08/18 08:00 White Blood Count 5.4 Red Blood Count 4.94 Hemoglobin 12.3 L Hematocrit 39.7 L Mean Corpuscular Volume 80.4 L Mean Corpuscular Hemoglobin 24.9 L Mean Corpuscular Hemoglobin Concent 31.0 L Red Cell Distribution Width 17.2 H Platelet Count 166 Mean Platelet Volume 10.5 H Immature Granulocytes % 0.900 H Neutrophils % 50.1 Lymphocytes % 38.0 Monocytes % 5.8 Eosinophils % 4.6 Basophils % 0.6 Nucleated Red Blood Cells % 0.0 Immature Granulocytes # 0.050 H Neutrophils # 2.7 Lymphocytes # 2.1 Monocytes # 0.3 Eosinophils # 0.3 Basophils # 0.0 Nucleated Red Blood Cells # 0.0 Sodium Level 139 Potassium Level 3.7 Chloride Level 110 Carbon Dioxide Level 17 L Anion Gap 12 Blood Urea Nitrogen 48 #H Creatinine 3.49 H Est Glomerular Filtrat Rate mL/min 18 L Glucose Level 115 Calcium Level 8.7 Creatine Kinase 103 Creatine Kinase Index 1.3 Creatinine Kinase MB (Mass) 1.35 Troponin I 0.012 Blood Gas Specimen Source Blood arterial Arterial Blood Date Drawn 11/08/2018 8:40:44 AM Arterial Blood pH (Temp corrected) 7.347 L Arterial Blood pCO2 (Temp correct) 28.8 L Arterial Blood pO2 (Temp corrected) 97.6 Arterial Blood HCO3 15.4 L Arterial Blood Base Excess -8.8 L Arterial Blood Oxygen Saturation 97.3 [place] Test ACCEPTAB Arterial Blood Gas Puncture Site Right Radial Arterial Blood Carboxyhemoglobin 0.4 Arterial Blood Methemoglobin 0.2 Blood Gas A-a O2 Differential 17.6 Oxyhemoglobin Percent 96.7 Blood Gas Temperature 37.0 Blood Gas Modality ROOM AIR FiO2 21.0 Blood Gas Notified Whom TM Blood Gas Notified Time 11/08/2018 8:50:22 AM Medications Medication Current Medications Acetaminophen (Tylenol Liquid) 650 mg Q6H PRN PO PAIN LEVEL 1-3 OR FEVER; Start 11/04/18 at 06:30 Pantoprazole (Protonix Iv) 40 mg DAILY@06 IV Last administered on 11/08/18at 06:18; Admin Dose 40 MG; Start 11/04/18 at 06:00 Azithromycin 250 ml @ 250 mls/hr Q24H IVPB Last administered on 11/08/18at 08:54; Admin Dose 250 MLS/HR; Start 11/04/18 at 08:00 Miscellaneous Information PLEASE CALL PHARM... NOTE XX ; Start 11/04/18 at 12:00 Metoprolol Tartrate (Lopressor) 25 mg Q8 PO Last administered on 11/08/18at 06:18; Admin Dose 25 MG; Start 11/04/18 at 14:00 Diltiazem HCl (Cardizem Iv) 20 mg Q1H PRN IV Sustained HR greater than 130; Start 11/04/18 at 12:30 Aspirin (Aspirin) 81 mg DAILY PO Last administered on 11/08/18at 08:54; Admin Dose 81 MG; Start 11/05/18 at 09:00 Ceftriaxone Sodium 50 ml @ 100 mls/hr Q24H IVPB Last administered on 11/08/18at 09:09; Admin Dose 100 MLS/HR; Start 11/05/18 at 09:00 Vancomycin HCl (Vanco Iv Per Pharmacy) VANCOMYCIN PER PHARM... PER PROTOCOL XX ; Start 11/05/18 at 04:00 Apixaban (Eliquis) 5 mg BID PO Last administered on 11/08/18at 08:54; Admin Dose 5 MG; Start 11/05/18 at 21:00 KP SEAMAN NP Nov 08, 2018 11:18
--- NOTE | 2018-11-08 16:47 | CONS ---
Assessment/Plan Assessment/Plan Hospital Course (Demo Recall) Respiratory failure-off BiPAP Possible pneumonia Preserved ejection fraction Atrial fibrillation with rapid ventricular rates, improved Morbid obesity Acute kidney injury with history of CKD -Respiratory status improved significantly and patient is off BiPAP. Echocardiogram with preserved ejection fraction. -Continue anticoagulation as tolerated, would DC aspirin -Adjust beta-bhargav to twice daily dosing. -Fluid management and diuretics as per nephrology Consultation Date/Type/Reason Admit Date/Time Nov 04, 2018 at 05:57 Initial Consult Date 11/04/18 Type of Consult Cardiology Date/Time of Note DATE: 11/08/18 TIME: 16:45 24 HR Interval Summary Free Text/Dictation Denies shortness of breath, palpitations, chest pain Exam/Review of Systems Vital Signs Vitals Vital Signs Date Temp Pulse Resp B/P (MAP) Pulse Ox O2 O2 Flow FiO2 Time Delivery Rate 11/08/18 97.3 61 19 152/98 97 Room Air 15:43 (116) 11/08/18 30 05:54 11/05/18 3.0 08:00 Intake and Output 11/07/18 11/07/18 11/08/18 1515:00 23:00 07:00 IntakeIntake Total 300 ml 2510 ml 500 ml OutputOutput Total 1150 ml 1450 ml BalanceBalance 300 ml 1360 ml -950 ml Exam Constitutional: alert, oriented (No apparent distress, family bedside, eating lunch) Respiratory: other (Coarse breath sounds bilaterally, no wheezing) Cardiovascular: irregular rhythm (S1-S2 heard) Gastrointestinal: soft, non-tender, bowel sounds Extremities: edema Labs Result Diagram: 11/08/18 0555 11/08/18 0555 Results 24hrs Laboratory Tests Test 11/08/18 05:55 11/08/18 08:00 White Blood Count 5.4 Red Blood Count 4.94 Hemoglobin 12.3 L Hematocrit 39.7 L Mean Corpuscular Volume 80.4 L Mean Corpuscular Hemoglobin 24.9 L Mean Corpuscular Hemoglobin Concent 31.0 L Red Cell Distribution Width 17.2 H Platelet Count 166 Mean Platelet Volume 10.5 H Immature Granulocytes % 0.900 H Neutrophils % 50.1 Lymphocytes % 38.0 Monocytes % 5.8 Eosinophils % 4.6 Basophils % 0.6 Nucleated Red Blood Cells % 0.0 Immature Granulocytes # 0.050 H Neutrophils # 2.7 Lymphocytes # 2.1 Monocytes # 0.3 Eosinophils # 0.3 Basophils # 0.0 Nucleated Red Blood Cells # 0.0 Sodium Level 139 Potassium Level 3.7 Chloride Level 110 Carbon Dioxide Level 17 L Anion Gap 12 Blood Urea Nitrogen 48 #H Creatinine 3.49 H Est Glomerular Filtrat Rate mL/min 18 L Glucose Level 115 Calcium Level 8.7 Creatine Kinase 103 Creatine Kinase Index 1.3 Creatinine Kinase MB (Mass) 1.35 Troponin I 0.012 Blood Gas Specimen Source Blood arterial Arterial Blood Date Drawn 11/08/2018 8:40:44 AM Arterial Blood pH (Temp corrected) 7.347 L Arterial Blood pCO2 (Temp correct) 28.8 L Arterial Blood pO2 (Temp corrected) 97.6 Arterial Blood HCO3 15.4 L Arterial Blood Base Excess -8.8 L Arterial Blood Oxygen Saturation 97.3 [place] Test ACCEPTAB Arterial Blood Gas Puncture Site Right Radial Arterial Blood Carboxyhemoglobin 0.4 Arterial Blood Methemoglobin 0.2 Blood Gas A-a O2 Differential 17.6 Oxyhemoglobin Percent 96.7 Blood Gas Temperature 37.0 Blood Gas Modality ROOM AIR FiO2 21.0 Blood Gas Notified Whom TM Blood Gas Notified Time 11/08/2018 8:50:22 AM Medications Medications Current Medications Acetaminophen (Tylenol Liquid) 650 mg Q6H PRN PO PAIN LEVEL 1-3 OR FEVER; Start 11/04/18 at 06:30 Pantoprazole (Protonix Iv) 40 mg DAILY@06 IV Last administered on 11/08/18at 06:18; Admin Dose 40 MG; Start 11/04/18 at 06:00 Azithromycin 250 ml @ 250 mls/hr Q24H IVPB Last administered on 11/08/18at 08:54; Admin Dose 250 MLS/HR; Start 11/04/18 at 08:00 Miscellaneous Information PLEASE CALL PHARM... NOTE XX ; Start 11/04/18 at 12:00 Metoprolol Tartrate (Lopressor) 25 mg Q8 PO Last administered on 11/08/18at 13:28; Admin Dose 25 MG; Start 11/04/18 at 14:00 Diltiazem HCl (Cardizem Iv) 20 mg Q1H PRN IV Sustained HR greater than 130; Start 11/04/18 at 12:30 Aspirin (Aspirin) 81 mg DAILY PO Last administered on 11/08/18at 08:54; Admin Dose 81 MG; Start 11/05/18 at 09:00 Ceftriaxone Sodium 50 ml @ 100 mls/hr Q24H IVPB Last administered on 11/08/18 09:09; Admin Dose 100 MLS/HR; Start 11/05/18 at 09:00 Vancomycin HCl (Vanco Iv Per Pharmacy) VANCOMYCIN PER PHARM... PER PROTOCOL XX ; Start 11/05/18 at 04:00 Apixaban (Eliquis) 5 mg BID PO Last administered on 11/08/18at 08:54; Admin Dose 5 MG; Start 11/05/18 at 21:00 Ferrous Sulfate (Ferrous Sulfate (Ec)) 325 mg BID PO ; Start 11/08/18 at 21:00 Elio Pino DO Nov 08, 2018 16:47
[2018-11-08] MEDS: FERROUS SULFATE (EC) 325 MG TAB PO SCH (22:23)
[2018-11-08] MEDS: METOPROLOL 50 MG TAB PO SCH (22:24)
[2018-11-09] VITALS (15 sets, daily range): BP systolic 134–169; BP diastolic 79–91; PULSE 54–72; RESP 19–20
[2018-11-09] MEDS: PANTOPRAZOLE 40 MG INJ IV SCH (05:05)
--- NOTE | 2018-11-09 08:47 | PN ---
DATE: 11/09/2018 SUBJECTIVE: The patient is stable, no events overnight. OBJECTIVE: VITAL SIGNS: Blood pressure is 153/79, respirations 20, pulse 69, temperature 97.5. HEENT: Head is normocephalic. NECK: Supple. HEART: Regular rate. LUNGS: Show diminished breath sounds at the base. ABDOMEN: Soft, nontender to palpation without rebound or guarding. EXTREMITIES: Negative for clubbing, cyanosis. Trace edema. DERMATOLOGIC: No rashes. MUSCULOSKELETAL: No joint effusion. NEUROLOGIC: No change in exam. MEDICATIONS: Reviewed. LABORATORY DATA: Shows sodium 140, potassium 3.8, BUN 41, creatinine 3.10. The patient's toxicology was reviewed. ASSESSMENT AND PLAN: 1. Nonoliguric kidney injury on top of chronic kidney disease with unknown baseline creatinine. Rosita ology of acute kidney injury is multifactorial. The patient's renal function has been improving. At this point, continue current treatment plans, supportive care, renally dose all medicines. 2. Chronic kidney disease. The patient currently is in acute kidney injury as stated above. Contin ue current treatment plan. Continue disease factor modification. 3. Hypernatremia, resolved. 4. Anemia. Monitor hemoglobin and hematocrit levels. 5. Mineral bone disorder, monitor calcium and phosphorus levels. 6. Metabolic acidosis with respiratory compensation. 7. Acute respiratory failure secondary to chronic obstructive pulmonary disease exacerbation. The p atient is currently on BiPAP, continue. 8. Atrial fibrillation, rate controlled. Continue medical management. 9. Hypertension. Continue current blood pressure regimen. 10. Pneumonia. The patient is completing antibiotic course. Dictated By: TOBI FLORES DO NR/NTS Conf#: [id number] DID#: [id number] CC: DIANA KWOK DO; MANJIT AKBAR MD;*EndCC*
[2018-11-09] MEDS: AZITHROMYCIN 500MG/NS (PMX) 250 ML IVPB SCH (08:50)
[2018-11-09] MEDS: FERROUS SULFATE (EC) 325 MG TAB PO SCH ×2 (08:55→21:22)
[2018-11-09] MEDS: APIXABAN 5 MG TABLET PO SCH ×2 (08:55→21:22)
[2018-11-09] MEDS: METOPROLOL 50 MG TAB PO SCH ×2 (08:55→21:23)
[2018-11-09] MEDS: CEFTRIAXONE 1 GM/50 ML (PMX) 50 ML IVPB SCH (08:56)
--- NOTE | 2018-11-09 09:53 | CONS ---
Assessment/Plan Assessment/Plan Assessment/Plan (Daily) Chest x-ray from yesterday late morning is showing improvement in left lower lobe infiltrative changes as well as decreased pleural effusion. Assessment recommendations; 1. Patient admitted with A. fib with RVR with shortness of breath with interval improvement. Patient in normal sinus rhythm now. 2. Chronic renal insufficiency with acute injury with improving serum creatinine. 3. Mild anemia and thrombocytopenia. 4. Possible underlying sleep apnea. 5. History of hypertension. 6. Colace negative staph aureus bacteremia. Continue current supportive care. Patient responding well to current treatment regimen. Obtain follow-up chest x-ray in 48 hours. Consultation Date/Type/Reason Admit Date/Time Nov 04, 2018 at 05:57 Initial Consult Date 11/04/18 Type of Consult Pulmonary/critical care Patient is a 68-year-old male who came into the emergency room with complaints of shortness of breath. Patient was found to be in atrial fibrillation with rapid ventricular response. Patient has been started on intravenous heparin by protocol and now transferred to ICU for further care. Patient is completely awake and alert and was able to talk despite being on BiPAP. According to him he is feeling much better since admission. Denies any chest pain, wheezing, cough. Sputum production. Past medical history; 1. Likely underlying sleep apnea. 2. Chronic lower extremity cellulitis. 3. Possibly chronic renal insufficiency. Medications; reviewed. Allergies; none. Social history; patient never smoked. Occupational history; patient is on disability. Has had miscellaneous occupations. Family history; noncontributory. Review of systems; denies any headache, seizures. Any chest pain. Angina. Shortness of breath has improved. Complains of very scant cough without any sputum production. Denies any fever or chills. Denies any abdominal pain, nausea vomiting. Any melena or hematochezia. Any diarrhea. Complains of chronic lower extremity edema. Complains of chronic orthopnea. Chronic dyspnea on exertion. Complains of snoring and excessive daytime sleepiness. General exam; elderly male, morbidly obese, on BiPAP. Awake and alert. Currently in no distress. Date/Time of Note DATE: 11/09/18 TIME: 09:50 24 HR Interval Summary Free Text/Dictation Patient's condition is stable. Remains awake and alert. Denies any shortness of breath at rest. General exam; elderly male, awake alert, currently no distress. Appears overweight. Exam/Review of Systems Exam Vitals Vital Signs Date Temp Pulse Resp B/P (MAP) Pulse Ox O2 O2 Flow FiO2 Time Delivery Rate 11/09/18 97.5 69 20 153/79 96 07:46 (103) 11/09/18 30 05:53 11/08/18 Room Air 15:43 11/05/18 3.0 08:00 Intake and Output 11/08/18 11/08/18 11/09/18 1515:00 23:00 07:00 IntakeIntake Total 680 ml 700 ml OutputOutput Total 1400 ml 1100 ml BalanceBalance -720 ml -400 ml Exam H EENT exam; supple neck, no lymphadenopathy. Midline trachea. Patient has a multiple carious teeth. JVD difficult to see because of lyles. No neck masses. Chest exam; diminished breath sounds bilaterally. S1-S2 audible, no murmurs. Regular rhythm. Abdomen exam; soft, protuberant. Nontender. Bowel sounds audible. Extremity exam; no peripheral edema. ENAMEL BURNER exam; no focal deficit. Results Result Diagram: 11/09/18 0556 11/09/18 0556 Results 24hrs Laboratory Tests Test 11/09/18 05:56 White Blood Count 5.7 Red Blood Count 4.90 Hemoglobin 12.1 L Hematocrit 39.5 L Mean Corpuscular Volume 80.6 L Mean Corpuscular Hemoglobin 24.7 L Mean Corpuscular Hemoglobin Concent 30.6 L Red Cell Distribution Width 16.9 H Platelet Count 182 Mean Platelet Volume 9.5 Immature Granulocytes % 1.200 H Neutrophils % 54.8 Lymphocytes % 32.4 Monocytes % 7.4 Eosinophils % 3.5 Basophils % 0.7 Nucleated Red Blood Cells % 0.0 Immature Granulocytes # 0.070 H Neutrophils # 3.1 Lymphocytes # 1.8 Monocytes # 0.4 Eosinophils # 0.2 Basophils # 0.0 Nucleated Red Blood Cells # 0.0 Sodium Level 140 Potassium Level 3.8 Chloride Level 110 Carbon Dioxide Level 18 L Anion Gap 12 Blood Urea Nitrogen 41 H Creatinine 3.10 H Est Glomerular Filtrat Rate mL/min 20 L Glucose Level 106 Calcium Level 8.8 Phosphorus Level 3.4 Magnesium Level 1.9 Random Vancomycin Level 10.7 Medications Medication Current Medications Acetaminophen (Tylenol Liquid) 650 mg Q6H PRN PO PAIN LEVEL 1-3 OR FEVER; Start 11/04/18 at 06:30 Pantoprazole (Protonix Iv) 40 mg DAILY@06 IV Last administered on 11/09/18 05:05; Admin Dose 40 MG; Start 11/04/18 at 06:00 Azithromycin 250 ml @ 250 mls/hr Q24H IVPB Last administered on 11/09/18 08:50; Admin Dose 250 MLS/HR; Start 11/04/18 at 08:00 Miscellaneous Information PLEASE CALL PHARM... NOTE XX ; Start 11/04/18 at 12:00 Diltiazem HCl (Cardizem Iv) 20 mg Q1H PRN IV Sustained HR greater than 130; Start 11/04/18 at 12:30 Ceftriaxone Sodium 50 ml @ 100 mls/hr Q24H IVPB Last administered on 11/09/18 08:56; Admin Dose 100 MLS/HR; Start 11/05/18 at 09:00 Vancomycin HCl (Vanco Iv Per Pharmacy) VANCOMYCIN PER PHARM... PER PROTOCOL XX ; Start 11/05/18 at 04:00 Apixaban (Eliquis) 5 mg BID PO Last administered on 11/09/18 08:55; Admin Dose 5 MG; Start 11/05/18 at 21:00 Ferrous Sulfate (Ferrous Sulfate (Ec)) 325 mg BID PO Last administered on 11/09/18 08:55; Admin Dose 325 MG; Start 11/08/18 at 21:00 Metoprolol Tartrate (Lopressor) 50 mg BID PO Last administered on 11/09/18 08:55; Admin Dose 50 MG; Start 11/08/18 at 21:00 ANDREAS WING 12, 2019 09:53
--- NOTE | 2018-11-09 10:13 | PN ---
Date/Time of Note Date/Time of Note DATE: 11/09/18 TIME: 10:10 Assessment/Plan VTE Prophylaxis Risk score (from Ns)>0 risk: 6 [place] [facility] [place] contraindicated: other Pharmacological prophylaxis: apixaban Lines/Catheters [facility] Type (from [facility] Saline Lock Urinary Cath still in place: No Assessment/Plan Hospital Course SUBJECTIVE: no acute overnight episodes. OBJECTIVE: Vital signs-see below PHYSICAL EXAM: Constitutional: morbidly obese male, not in acute distress. Psych: nl mood/affect, no complaints Head: atraumatic, normocephalic Eyes: nl conjunctiva, nl sclera ENMT: Hard of hearing. Mucosa pink and moist, nl external ears & nose Neck: non-tender, supple Respiratory: Diminished bibasilar. normal air movement Cardiovascular: nl pulses, regular rate and rhythm Gastrointestinal: non-tender, soft, bowel sounds active in all 4 quadrants. Musculoskeletal/extremities:+chronic hyperpigmentation/venous stasis changes. +Edema. No focal deficit. Normal pulses,no cyanosis Neurological: Alert oriented 3,nl speech, nl strength Skin: nl turgor ASSESSMENT/PLAN:68-year-old morbidly obese male w/afib,venous stasis ulcers,htn, admitted w/resp distress found to have RVR/,resp fx 1. S/P Acute hypoxemic respiratory failure, likely multifactorial with A. fib/RVR/DD/Obesity induced hypoventilation/pneumonia. -off o2. -Continue PRN breathing treatments. -Continue titrating off oxygen to keep saturation above 92%. -Follow pulmonary recommendations=>recommended repeat Xray in 48hrs 2. Community-acquired pneumonia. -Stable. -On appropriate antimicrobials-deescalate in 24-48hrs. 3. A. fib w/RVR -now stable -con. THALIA chang 4. Acute kidney injury on chronic kidney disease -w/improved renal fxn -management per nephro -Avoid nephrotoxic drugs as much as possible, Renally dose all meds. Serial labs. 5. Obesity/obstructive sleep apnea -rec pulmonary f/u, sleep study,outot 6. Diastolic dysfunction w/preserved EF -cont.BB -mgmt pe rcards 7. Venous stasis -cont.asa -elevate 8. Hypertension -needs more control. uptitrate metoprolol to 75 mg bid 9. Debility -Patient would benefit from ECF -PT 10. Morbid obesity. -Weight Reduction advised. dvt prophylaxis:eliquis Dispo: Pul recommended repeat xray in 48hrs. BP slightly bennett, need med adjustment. DC planning to [facility] in 24hrs if x-ray stable and BP stable. Patient is seen in collaboration with Dr. Lamar. Result Diagram: 11/09/18 0556 11/09/18 0556 Results 24hrs Laboratory Tests Test 11/09/18 05:56 White Blood Count 5.7 Red Blood Count 4.90 Hemoglobin 12.1 L Hematocrit 39.5 L Mean Corpuscular Volume 80.6 L Mean Corpuscular Hemoglobin 24.7 L Mean Corpuscular Hemoglobin Concent 30.6 L Red Cell Distribution Width 16.9 H Platelet Count 182 Mean Platelet Volume 9.5 Immature Granulocytes % 1.200 H Neutrophils % 54.8 Lymphocytes % 32.4 Monocytes % 7.4 Eosinophils % 3.5 Basophils % 0.7 Nucleated Red Blood Cells % 0.0 Immature Granulocytes # 0.070 H Neutrophils # 3.1 Lymphocytes # 1.8 Monocytes # 0.4 Eosinophils # 0.2 Basophils # 0.0 Nucleated Red Blood Cells # 0.0 Sodium Level 140 Potassium Level 3.8 Chloride Level 110 Carbon Dioxide Level 18 L Anion Gap 12 Blood Urea Nitrogen 41 H Creatinine 3.10 H Est Glomerular Filtrat Rate mL/min 20 L Glucose Level 106 Calcium Level 8.8 Phosphorus Level 3.4 Magnesium Level 1.9 Random Vancomycin Level 10.7 Exam/Review of Systems Exam Vitals Vital Signs Date Temp Pulse Resp B/P (MAP) Pulse Ox O2 O2 Flow FiO2 Time Delivery Rate 11/09/18 97.5 69 20 153/79 96 07:46 (103) 11/09/18 30 05:53 11/08/18 Room Air 15:43 11/05/18 3.0 08:00 Intake and Output 11/08/18 11/08/18 11/09/18 1515:00 23:00 07:00 IntakeIntake Total 680 ml 700 ml OutputOutput Total 1400 ml 1100 ml BalanceBalance -720 ml -400 ml Results Results 24hrs Laboratory Tests Test 11/09/18 05:56 White Blood Count 5.7 Red Blood Count 4.90 Hemoglobin 12.1 L Hematocrit 39.5 L Mean Corpuscular Volume 80.6 L Mean Corpuscular Hemoglobin 24.7 L Mean Corpuscular Hemoglobin Concent 30.6 L Red Cell Distribution Width 16.9 H Platelet Count 182 Mean Platelet Volume 9.5 Immature Granulocytes % 1.200 H Neutrophils % 54.8 Lymphocytes % 32.4 Monocytes % 7.4 Eosinophils % 3.5 Basophils % 0.7 Nucleated Red Blood Cells % 0.0 Immature Granulocytes # 0.070 H Neutrophils # 3.1 Lymphocytes # 1.8 Monocytes # 0.4 Eosinophils # 0.2 Basophils # 0.0 Nucleated Red Blood Cells # 0.0 Sodium Level 140 Potassium Level 3.8 Chloride Level 110 Carbon Dioxide Level 18 L Anion Gap 12 Blood Urea Nitrogen 41 H Creatinine 3.10 H Est Glomerular Filtrat Rate mL/min 20 L Glucose Level 106 Calcium Level 8.8 Phosphorus Level 3.4 Magnesium Level 1.9 Random Vancomycin Level 10.7 Medications Medication Current Medications Acetaminophen (Tylenol Liquid) 650 mg Q6H PRN PO PAIN LEVEL 1-3 OR FEVER; Start 11/04/18 at 06:30 Pantoprazole (Protonix Iv) 40 mg DAILY@06 IV Last administered on 11/09/18at 05:05; Admin Dose 40 MG; Start 11/04/18 at 06:00 Azithromycin 250 ml @ 250 mls/hr Q24H IVPB Last administered on 11/09/18at 08:50; Admin Dose 250 MLS/HR; Start 11/04/18 at 08:00 Miscellaneous Information PLEASE CALL PHARM... NOTE XX ; Start 11/04/18 at 12:00 Diltiazem HCl (Cardizem Iv) 20 mg Q1H PRN IV Sustained HR greater than 130; Start 11/04/18 at 12:30 Ceftriaxone Sodium 50 ml @ 100 mls/hr Q24H IVPB Last administered on 11/09/18at 08:56; Admin Dose 100 MLS/HR; Start 11/05/18 at 09:00 Vancomycin HCl (Vanco Iv Per Pharmacy) VANCOMYCIN PER PHARM... PER PROTOCOL XX ; Start 11/05/18 at 04:00 Apixaban (Eliquis) 5 mg BID PO Last administered on 11/09/18at 08:55; Admin Dose 5 MG; Start 11/05/18 at 21:00 Ferrous Sulfate (Ferrous Sulfate (Ec)) 325 mg BID PO Last administered on 08/18at 08:55; Admin Dose 325 MG; Start 11/08/18 at 21:00 Metoprolol Tartrate (Lopressor) 50 mg BID PO Last administered on 11/09/18at 08:55; Admin Dose 50 MG; Start 11/08/18 at 21:00 KP SEAMAN NP Nov 09, 2018 10:13
[2018-11-09] MEDS ORDERED: METOPROLOL 25 MG TAB PO ONE (11:30)
[2018-11-09] MEDS ORDERED: VANCOMYCIN HCL 1.5 GM in SOD CHLORIDE 0.9% 250 ML IVPB SCH (16:00)
--- NOTE | 2018-11-09 16:02 | CONS ---
Assessment/Plan Assessment/Plan Hospital Course (Demo Recall) Respiratory failure-off BiPAP Possible pneumonia Preserved ejection fraction Atrial fibrillation with rapid ventricular rates, improved Morbid obesity Acute kidney injury with history of CKD -Respiratory status improved significantly and patient is off BiPAP. Echocardiogram with preserved ejection fraction. -Continue anticoagulation as tolerated -Continue beta-bhargav as tolerated -Blood pressure trend overall improved, if needed, could add Norvasc -Fluid management and diuretics as per nephrology Consultation Date/Type/Reason Admit Date/Time Nov 04, 2018 at 05:57 Initial Consult Date 11/04/18 Type of Consult Cardiology Date/Time of Note DATE: 11/09/18 TIME: 16:01 24 HR Interval Summary Free Text/Dictation Denies palpitations, chest pain, shortness of breath Exam/Review of Systems Vital Signs Vitals Vital Signs Date Temp Pulse Resp B/P (MAP) Pulse Ox O2 O2 Flow FiO2 Time Delivery Rate 11/09/18 97.9 62 20 134/87 97 15:45 (103) 11/09/18 30 05:53 11/08/18 Room Air 15:43 11/05/18 3.0 08:00 Intake and Output 11/08/18 11/08/18 11/09/18 1515:00 23:00 07:00 IntakeIntake Total 680 ml 700 ml OutputOutput Total 1400 ml 1100 ml BalanceBalance -720 ml -400 ml Exam Constitutional: alert, oriented (No apparent distress) Respiratory: other (Coarse breath sounds bilaterally, no wheezing) Cardiovascular: irregular rhythm (S1-S2 heard) Gastrointestinal: soft, non-tender, bowel sounds Extremities: edema Labs Result Diagram: 11/09/18 0556 11/09/18 0556 Results 24hrs Laboratory Tests Test 11/09/18 05:56 White Blood Count 5.7 Red Blood Count 4.90 Hemoglobin 12.1 L Hematocrit 39.5 L Mean Corpuscular Volume 80.6 L Mean Corpuscular Hemoglobin 24.7 L Mean Corpuscular Hemoglobin Concent 30.6 L Red Cell Distribution Width 16.9 H Platelet Count 182 Mean Platelet Volume 9.5 Immature Granulocytes % 1.200 H Neutrophils % 54.8 Lymphocytes % 32.4 Monocytes % 7.4 Eosinophils % 3.5 Basophils % 0.7 Nucleated Red Blood Cells % 0.0 Immature Granulocytes # 0.070 H Neutrophils # 3.1 Lymphocytes # 1.8 Monocytes # 0.4 Eosinophils # 0.2 Basophils # 0.0 Nucleated Red Blood Cells # 0.0 Sodium Level 140 Potassium Level 3.8 Chloride Level 110 Carbon Dioxide Level 18 L Anion Gap 12 Blood Urea Nitrogen 41 H Creatinine 3.10 H Est Glomerular Filtrat Rate mL/min 20 L Glucose Level 106 Calcium Level 8.8 Phosphorus Level 3.4 Magnesium Level 1.9 Random Vancomycin Level 10.7 Medications Medications Current Medications Acetaminophen (Tylenol Liquid) 650 mg Q6H PRN PO PAIN LEVEL 1-3 OR FEVER; Start 11/04/18 at 06:30 Azithromycin 250 ml @ 250 mls/hr Q24H IVPB Last administered on 11/09/18at 08:50; Admin Dose 250 MLS/HR; Start 11/04/18 at 08:00 Miscellaneous Information PLEASE CALL PHARM... NOTE XX ; Start 11/04/18 at 12:00 Diltiazem HCl (Cardizem Iv) 20 mg Q1H PRN IV Sustained HR greater than 130; Start 11/04/18 at 12:30 Ceftriaxone Sodium 50 ml @ 100 mls/hr Q24H IVPB Last administered on 11/09/18at 08:56; Admin Dose 100 MLS/HR; Start 11/05/18 at 09:00 Vancomycin HCl (Vanco Iv Per Pharmacy) VANCOMYCIN PER PHARM... PER PROTOCOL XX ; Start 11/05/18 at 04:00 Apixaban (Eliquis) 5 mg BID PO Last administered on 11/09/18at 08:55; Admin Dose 5 MG; Start 11/05/18 at 21:00 Ferrous Sulfate (Ferrous Sulfate (Ec)) 325 mg BID PO Last administered on 11/09/18at 08:55; Admin Dose 325 MG; Start 11/08/18 at 21:00 Famotidine (Pepcid) 20 mg DAILY PO ; Start 11/10/18 at 09:00 Metoprolol Tartrate (Lopressor) 75 mg BID PO ; Start 11/09/18 at 21:00 Vancomycin HCl 1.5 gm/Sodium Chloride 250 ml @ 83.333 mls/ hr Q48H IVPB Last administered on 11/09/18at 15:57; Admin Dose 83.333 MLS/HR; Start 11/09/18 at 16:00 Elio Pino DO Nov 09, 2018 16:02
[2018-11-10] VITALS (13 sets, daily range): BP systolic 136–145; BP diastolic 69–85; PULSE 50–81; RESP 20
[2018-11-10] MEDS: AZITHROMYCIN 500MG/NS (PMX) 250 ML IVPB SCH (08:03)
--- NOTE | 2018-11-10 08:29 | PN ---
DATE: 11/10/2018 SUBJECTIVE: The patient is stable, no events overnight. OBJECTIVE: VITAL SIGNS: Blood pressure is 144/72, pulse 61, respirations 20, temperature 97.3. HEENT: Head is normocephalic. NECK: Supple. HEART: Regular rate. LUNGS: Show diminished breath sounds at the base. ABDOMEN: Soft, nontender to palpation without rebound or guarding. EXTREMITIES: Negative for clubbing, cyanosis, no edema. DERMATOLOGIC: No rashes. MUSCULOSKELETAL: No joint effusion. NEUROLOGIC: No change in exam. MEDICATIONS: The patient's medications have been reviewed. LABORATORY DATA: Shows sodium 139, BUN 38, creatinine 2.64. White count 6.3, hemoglobin 12.3, plate let count is 205. ASSESSMENT AND PLAN: 1. Nonoliguric acute kidney injury on top of chronic kidney disease with unknown baseline creatinine . Etiology of acute kidney injury is multifactorial secondary to hemodynamics. The patient's renal function has been improving with supportive care. At this point, continue current treatment plan, re gagandeep dose all medicines and avoid nephrotoxins. 2. Chronic kidney disease. The patient is currently in acute kidney injury, stable. Continue curre nt treatment plan. Continue disease factor modification. 3. Hypernatremia, resolved. 4. Anemia. Monitor hemoglobin and hematocrit levels. 5. Mineral bone disorder. Monitor calcium and phosphorus levels. 6. Metabolic acidosis with respiratory compensation. 7. Acute respiratory failure secondary to chronic obstructive pulmonary disease, improving. 8. Sleep apnea. Continue nightly BiPAP. 9. Atrial fibrillation, rate controlled. 10. Hypertension. Continue current blood pressure regimen. 11. Pneumonia. The patient is completing antibiotic course. Dictated By: TOBI FLORES DO NR/NTS Conf#: [id number] DID#: [id number] CC: MANJIT AKBAR MD; DIANA KWOK DO;*EndCC*
[2018-11-10] MEDS: APIXABAN 5 MG TABLET PO SCH (08:57)
[2018-11-10] MEDS: FERROUS SULFATE (EC) 325 MG TAB PO SCH (08:57)
[2018-11-10] MEDS: METOPROLOL 50 MG TAB PO SCH (08:59)
[2018-11-10] MEDS ORDERED: FAMOTIDINE 20 MG TAB PO SCH (09:00)
[2018-11-10] MEDS: CEFTRIAXONE 1 GM/50 ML (PMX) 50 ML IVPB SCH (09:02)
--- NOTE | 2018-11-10 09:09 | PDOCDIS ---
Discharge Instructions CONDITION [id number] Patient Condition: [id number] Stable HOME CARE INSTRUCTIONS: [id number] Diet Instructions: [id number] Low Fat /Cholesterol FOLLOW UP/APPOINTMENTS Follow-up Plan Follow-up with Dr. Watson and in 1 week after discharge KP SEAMAN NP Nov 10, 2018 09:09
--- NOTE | 2018-11-10 09:13 | PN ---
Date/Time of Note Date/Time of Note DATE: 11/10/18 TIME: 09:12 Assessment/Plan VTE Prophylaxis Risk score (from Ns)>0 risk: 6 SCD applied (from [facility] [place] No SCD contraindicated: other Pharmacological prophylaxis: apixaban Lines/Catheters IV [facility]atheter Type (from [facility]): Saline Lock Urinary Cath still in place: No Assessment/Plan Hospital Course SUBJECTIVE: no acute overnight episodes. OBJECTIVE: Vital signs-see below PHYSICAL EXAM: Constitutional: morbidly obese male, not in acute distress. Psych: nl mood/affect, no complaints Head: atraumatic, normocephalic Eyes: nl conjunctiva, nl sclera ENMT: Hard of hearing. Mucosa pink and moist, nl external ears & nose Neck: non-tender, supple Respiratory: Diminished bibasilar. normal air movement Cardiovascular: nl pulses, regular rate and rhythm Gastrointestinal: non-tender, soft, bowel sounds active in all 4 quadrants. Musculoskeletal/extremities:+chronic hyperpigmentation/venous stasis changes. +Edema. No focal deficit. Normal pulses,no cyanosis Neurological: Alert oriented 3,nl speech, nl strength Skin: nl turgor ASSESSMENT/PLAN:68-year-old morbidly obese male w/afib,venous stasis ulcers,htn, admitted w/resp distress found to have RVR/,resp fx 1. Acute hypoxemic respiratory failure, likely multifactorial with A. fib/RVR/DD/Obesity induced hypoventilation/pneumonia. -Clinically improved. -Continue PRN breathing treatments. -Continue titrating off oxygen to keep saturation above 92%. -Follow pulmonary recommendations. 2. Community-acquired pneumonia. -Stable. -On appropriate antimicrobials. 3. A. fib w/RVR -now stable -con. THALIA chang 4. Acute kidney injury on chronic kidney disease -managment per nephro -Avoid nephrotoxic drugs as much as possible, Renally dose all meds. Serial labs. 5. Obesity/obstructive sleep apnea -rec oupt pulmonary f/u, sleep study 6. Dastolic dysfunction w/preserved EF -cont.BB -mgmt pe rcards 7. Venous stasis -cont.asa -elevate 8. Hypertension -stable cont.antihypertensives 9. Debility -Patient would benefit from ECF -PT 10. Morbid obesity. -Weight Reduction advised. DVT prophylaxis: Claudio PUD prophylaxis: Pepcid Dispo: DC planning to nursing home facility with 5 more days on doxycycline. Patient is seen in collaboration with Dr. Lamar. Result Diagram: 11/10/1814 11/10/18 0514 Results 24hrs Laboratory Tests Test 11/10/18 05:14 White Blood Count 6.3 Red Blood Count 4.88 Hemoglobin 12.3 L Hematocrit 39.4 L Mean Corpuscular Volume 80.7 L Mean Corpuscular Hemoglobin 25.2 L Mean Corpuscular Hemoglobin Concent 31.2 L Red Cell Distribution Width 16.8 H Platelet Count 205 Mean Platelet Volume 9.8 Immature Granulocytes % 1.900 H Neutrophils % 60.1 Lymphocytes % 26.5 Monocytes % 7.7 Eosinophils % 3.3 Basophils % 0.5 Nucleated Red Blood Cells % 0.0 Immature Granulocytes # 0.120 H Neutrophils # 3.8 Lymphocytes # 1.7 Monocytes # 0.5 Eosinophils # 0.2 Basophils # 0.0 Nucleated Red Blood Cells # 0.0 Sodium Level 139 Potassium Level 3.8 Chloride Level 110 Carbon Dioxide Level 17 L Anion Gap 12 Blood Urea Nitrogen 38 H Creatinine 2.64 H Est Glomerular Filtrat Rate mL/min 24 L Glucose Level 100 Calcium Level 8.8 Phosphorus Level 2.9 Magnesium Level 1.8 Exam/Review of Systems Exam Vitals Vital Signs Date Temp Pulse Resp B/P (MAP) Pulse Ox O2 O2 Flow FiO2 Time Delivery Rate 11/10/18 97.3 61 20 144/72 99 07:54 (96) 11/10/18 30 04:54 11/08/18 Room Air 15:43 Intake and Output 11/09/18 11/09/18 11/10/18 1414:59 22:59 06:59 IntakeIntake Total 300 ml 1200 ml 500 ml OutputOutput Total 950 ml 600 ml BalanceBalance 300 ml 250 ml -100 ml Results Results 24hrs Laboratory Tests Test 11/10/18 05:14 White Blood Count 6.3 Red Blood Count 4.88 Hemoglobin 12.3 L Hematocrit 39.4 L Mean Corpuscular Volume 80.7 L Mean Corpuscular Hemoglobin 25.2 L Mean Corpuscular Hemoglobin Concent 31.2 L Red Cell Distribution Width 16.8 H Platelet Count 205 Mean Platelet Volume 9.8 Immature Granulocytes % 1.900 H Neutrophils % 60.1 Lymphocytes % 26.5 Monocytes % 7.7 Eosinophils % 3.3 Basophils % 0.5 Nucleated Red Blood Cells % 0.0 Immature Granulocytes # 0.120 H Neutrophils # 3.8 Lymphocytes # 1.7 Monocytes # 0.5 Eosinophils # 0.2 Basophils # 0.0 Nucleated Red Blood Cells # 0.0 Sodium Level 139 Potassium Level 3.8 Chloride Level 110 Carbon Dioxide Level 17 L Anion Gap 12 Blood Urea Nitrogen 38 H Creatinine 2.64 H Est Glomerular Filtrat Rate mL/min 24 L Glucose Level 100 Calcium Level 8.8 Phosphorus Level 2.9 Magnesium Level 1.8 Medications Medication Current Medications Acetaminophen (Tylenol Liquid) 650 mg Q6H PRN PO PAIN LEVEL 1-3 OR FEVER; Start 11/04/18 at 06:30 Azithromycin 250 ml @ 250 mls/hr Q24H IVPB Last administered on 11/10/18at 08:03; Admin Dose 250 MLS/HR; Start 11/04/18 at 08:00 Miscellaneous Information PLEASE CALL PHARM... NOTE XX ; Start 11/04/18 at 12:00 Diltiazem HCl (Cardizem Iv) 20 mg Q1H PRN IV Sustained HR greater than 130; Start 11/04/18 at 12:30 Ceftriaxone Sodium 50 ml @ 100 mls/hr Q24H IVPB Last administered on 11/10/18at 09:02; Admin Dose 100 MLS/HR; Start 11/05/18 at 09:00 Vancomycin HCl (Vanco Iv Per Pharmacy) VANCOMYCIN PER PHARM... PER PROTOCOL XX ; Start 11/05/18 at 04:00 Apixaban (Eliquis) 5 mg BID PO Last administered on 11/10/18at 08:57; Admin Dose 5 MG; Start 11/05/18 at 21:00 Ferrous Sulfate (Ferrous Sulfate (Ec)) 325 mg BID PO Last administered on 11/10/18at 08:57; Admin Dose 325 MG; Start 11/08/18 at 21:00 Famotidine (Pepcid) 20 mg DAILY PO Last administered on 11/10/18at 08:57; Admin Dose 20 MG; Start 11/10/18 at 09:00 Metoprolol Tartrate (Lopressor) 75 mg BID PO Last administered on 11/10/18at 08:59; Admin Dose 75 MG; Start 11/09/18 at 21:00 Vancomycin HCl 1.5 gm/Sodium Chloride 250 ml @ 83.333 mls/ hr Q48H IVPB Last administered on 11/09/18at 15:57; Admin Dose 83.333 MLS/HR; Start 11/09/18 at 16:00 KP SEAMAN NP Nov 10, 2018 09:13
--- NOTE | 2018-11-10 12:52 | CONS ---
Assessment/Plan Assessment/Plan Hospital Course (Demo Recall) Respiratory failure-off BiPAP Possible pneumonia Preserved ejection fraction Atrial fibrillation with rapid ventricular rates, improved Morbid obesity Acute kidney injury with history of CKD -Respiratory status improved significantly and patient is off BiPAP. Echocardiogram with preserved ejection fraction. -Continue anticoagulation as tolerated -Heart rate on the lower side, with decreased dose of metoprolol -We will start Norvasc for blood pressure control -Fluid management and diuretics as per nephrology Consultation Date/Type/Reason Admit Date/Time Nov 04, 2018 at 05:57 Initial Consult Date 11/04/18 Type of Consult Cardiology Date/Time of Note DATE: 11/10/18 TIME: 12:51 24 HR Interval Summary Free Text/Dictation Denies palpitations, chest pain or shortness of breath Exam/Review of Systems Vital Signs Vitals Vital Signs Date Temp Pulse Resp B/P (MAP) Pulse Ox O2 O2 Flow FiO2 Time Delivery Rate 11/10/18 97.5 72 20 145/82 99 11:20 (103) 11/10/18 3.0 32 09:43 11/08/18 Room Air 15:43 Intake and Output 11/09/18 11/09/18 11/10/18 1515:00 23:00 07:00 IntakeIntake Total 300 ml 1200 ml 500 ml OutputOutput Total 950 ml 600 ml BalanceBalance 300 ml 250 ml -100 ml Exam Constitutional: alert, oriented (No apparent distress) Respiratory: other (Coarse breath sounds bilaterally, no wheezing) Cardiovascular: irregular rhythm (S1-S2 heard) Gastrointestinal: soft, non-tender, bowel sounds Extremities: edema Labs Result Diagram: 11/10/18 0514 11/10/18 0514 Results 24hrs Laboratory Tests Test 11/10/18 05:14 White Blood Count 6.3 Red Blood Count 4.88 Hemoglobin 12.3 L Hematocrit 39.4 L Mean Corpuscular Volume 80.7 L Mean Corpuscular Hemoglobin 25.2 L Mean Corpuscular Hemoglobin Concent 31.2 L Red Cell Distribution Width 16.8 H Platelet Count 205 Mean Platelet Volume 9.8 Immature Granulocytes % 1.900 H Neutrophils % 60.1 Lymphocytes % 26.5 Monocytes % 7.7 Eosinophils % 3.3 Basophils % 0.5 Nucleated Red Blood Cells % 0.0 Immature Granulocytes # 0.120 H Neutrophils # 3.8 Lymphocytes # 1.7 Monocytes # 0.5 Eosinophils # 0.2 Basophils # 0.0 Nucleated Red Blood Cells # 0.0 Sodium Level 139 Potassium Level 3.8 Chloride Level 110 Carbon Dioxide Level 17 L Anion Gap 12 Blood Urea Nitrogen 38 H Creatinine 2.64 H Est Glomerular Filtrat Rate mL/min 24 L Glucose Level 100 Calcium Level 8.8 Phosphorus Level 2.9 Magnesium Level 1.8 Medications Medications Current Medications Acetaminophen (Tylenol Liquid) 650 mg Q6H PRN PO PAIN LEVEL 1-3 OR FEVER; Start 11/04/18 at 06:30 Azithromycin 250 ml @ 250 mls/hr Q24H IVPB Last administered on 11/10/18 08:03; Admin Dose 250 MLS/HR; Start 11/04/18 at 08:00 Miscellaneous Information PLEASE CALL PHARM... NOTE XX ; Start 11/04/18 at 12:00 Diltiazem HCl (Cardizem Iv) 20 mg Q1H PRN IV Sustained HR greater than 130; Start 11/04/18 at 12:30 Ceftriaxone Sodium 50 ml @ 100 mls/hr Q24H IVPB Last administered on 11/10/18 09:02; Admin Dose 100 MLS/HR; Start 11/05/18 at 09:00 Vancomycin HCl (Vanco Iv Per Pharmacy) VANCOMYCIN PER PHARM... PER PROTOCOL XX ; Start 11/05/18 at 04:00 Apixaban (Eliquis) 5 mg BID PO Last administered on 11/10/18 08:57; Admin Dose 5 MG; Start 11/05/18 at 21:00 Ferrous Sulfate (Ferrous Sulfate (Ec)) 325 mg BID PO Last administered on 11/10/18 08:57; Admin Dose 325 MG; Start 11/08/18 at 21:00 Famotidine (Pepcid) 20 mg DAILY PO Last administered on 11/10/18 08:57; Admin Dose 20 MG; Start 11/10/18 at 09:00 Metoprolol Tartrate (Lopressor) 75 mg BID PO Last administered on 11/10/18 08:59; Admin Dose 75 MG; Start 11/09/18 at 21:00 Vancomycin HCl 1.5 gm/Sodium Chloride 250 ml @ 83.333 mls/ hr Q48H IVPB Last administered on 11/09/18 15:57; Admin Dose 83.333 MLS/HR; Start 11/09/18 at 1 6:00 Elio Pino DO Nov 10, 2018 12:52
[2018-11-10] MEDS ORDERED: AMLODIPINE 5 MG TAB PO SCH (13:00)
--- NOTE | 2018-11-10 20:23 | DS ---
Date/Time of Note Date/Time of Note DATE: 11/10/18 TIME: 20:20 Discharge Summary Admission/Discharge Info Admit Date/Time Nov 04, 2018 at 05:57 Discharge Date/Time Nov 10, 2018 at 19:23 Discharge Diagnosis 1. Acute hypoxemic respiratory failure, likely multifactorial with A. fib/RVR/DD/Obesity induced hypoventilation/pneumonia.stable 2. Community-acquired pneumonia. 3. A. fib w/RVR 4. Acute kidney injury on chronic kidney disease,stable 5. Obesity/obstructive sleep apnea 6. Diastolic dysfunction w/preserved EF 7. Venous stasis 8. Hypertension 9. Debility 10. Morbid obesity. Patient Condition: Stable Consults , pulmonary , cardiology Dr. Watson, senior quality technician Procedures 11/10/2018. Chest x-ray. IMPRESSION: Interstitial edema suggesting cardiopulmonary congestion is improving. Similar appearance of left basilar atelectasis/infiltrate. Small left-sided pleural effusion is similar in appearance. 11/04/2018. Chest x-ray. IMPRESSION: 1. Bibasilar increased density more extensive at the left base may all be due to atelectasis and scarring. Basilar infiltrates especially at the left base should be considered. 2. Cardiomegaly without congestive heart failure. 11/04/2018. 2D echocardiogram. Conclusions: Normal left ventricular systolic function. Normal left ventricular cavity size. Moderate concentric left ventricular hypertrophy. Ejection fraction is visually estimated at 55 %. Abnormal Diastolic Function. Normal right ventricular size. Normal right ventricular systolic function. The left atrium is normal in size. The right atrium is normal in size. No significant valvular stenosis or regurgitation seen. Normal pericardium with no significant pericardial effusion. Electronically Signed By: Diana Pino 2018-11-04 19:15:04 PST Dictated By: DIANA PINO DO Signed By: DIANA PINO DO Hospital Course 68-year-old morbidly obese male with atrial fibrillation, venous stasis ulcers, hypertension, admitted with respiratory distress, found to have A. fib with RVR. Patient did require BiPAP and ICU admission. He was continued on anticoagulation for A. fib RVR. Patient was being followed by our pulmonary and cardiology group. He was continued on breathing treatments. Patient was also noted with pneumonia for which he received appropriate antimicrobials. Patient heart rate remained stable and remained in controlled A. fib. He was then switched to Eliquis and beta-blockers. Patient hospitalization was also noted for acute kidney injury on CKD for which he was being followed by a senior quality technician. Patient's renal function remained stable at baseline. Patient's echocardiogram with preserved ejection fraction, however with diastolic dysfunction for which he was continued on beta-blockers. He also had chronic venous stasis bilateral lower extremities and was continued on aspirin. Patient did well and he was then transferred to telemetry floor. He did not require any further supplemental oxygen. Patient was then evaluated by our physical therapist who deemed a good candidate for [facility] for [facility] and patient was accepted on 11/10/2018. Appropriately 60 minutes was spent on coordinating the discharge on this patient. Patient was seen in collaboration with Dr. Lamar. Follow-up Plan Follow-up with Dr. Watson and in 1 week after discharge Primary Care Provider Care Physician No Primary Pending Labs Laboratory Tests Test 11/10/18 05:14 White Blood Count 6.3 10^3/ul (4.8-10.8) Red Blood Count 4.88 10^6/ul (4.70-6.10) Hemoglobin 12.3 g/dl (14.0-18.0) Hematocrit 39.4 % (42.0-52.0) Mean Corpuscular Volume 80.7 fl (82.0-101.0) Mean Corpuscular Hemoglobin 25.2 pg (29.0-33.0) Mean Corpuscular Hemoglobin Concent 31.2 g/dl (32.0-37.0) Red Cell Distribution Width 16.8 % (11.5-14.5) Platelet Count 205 10^3/UL (140-415) Mean Platelet Volume 9.8 fl (7.4-10.4) Immature Granulocytes % 1.900 % (0.001-0.429) Neutrophils % 60.1 % (39.0-77.0) Lymphocytes % 26.5 % (15.0-51.0) Monocytes % 7.7 % (0.0-11.0) Eosinophils % 3.3 % (0.0-7.0) Basophils % 0.5 % (0.0-2.0) Nucleated Red Blood Cells % 0.0 /100WBC (0.0-0.0) Immature Granulocytes # 0.120 10^3/ul (0.0-0.031) Neutrophils # 3.8 10^3/ul (1.6-7.5) Lymphocytes # 1.7 10^3/ul (0.8-2.9) Monocytes # 0.5 10^3/ul (0.3-0.9) Eosinophils # 0.2 10^3/ul (0.0-0.5) Basophils # 0.0 10^3/ul (0.0-0.1) Nucleated Red Blood Cells # 0.0 10^3/ul (0.0-0.0) Sodium Level 139 mmol/L (135-144) Potassium Level 3.8 mmol/L (3.5-5.1) Chloride Level 110 mmol/L (97-110) Carbon Dioxide Level 17 mmol/L (21-31) Anion Gap 12 (5-13) Blood Urea Nitrogen 38 mg/dl (7-20) Creatinine 2.64 mg/dl (0.61-1.24) Est Glomerular Filtrat Rate mL/min 24 mL/min (>60) Glucose Level 100 mg/dl (70-220) Calcium Level 8.8 mg/dl (8.4-10.2) Phosphorus Level 2.9 mg/dl (2.5-4.9) Magnesium Level 1.8 mg/dl (1.7-2.5) KP SEAMAN NP Nov 10, 2018 20:23
[2018-11-10] MEDS ORDERED: METOPROLOL 50 MG TAB PO SCH (21:00)
[2018-11-11] MEDS ORDERED: AZITHROMYCIN 250 MG TAB PO SCH (09:00)
== END 2018-11-10 19:23 | DRG 871 ==
LOC: EDBD 05:21 → E/R 05:21 → ICU 05:57 → 6WM 11-06 21:40
PROVIDERS: ADMIT Family Medicine; ATTEND Family Medicine
PROC: 5A09457 Assistance with Respiratory Ventilation, 24-96 Consecutive Hours, Continuous Positive Airway Pressure (ICD-10-PCS; principal; 2018-11-04)
DX: A41.9 Sepsis, unspecified organism (principal); J18.9 Pneumonia, unspecified organism; J96.01 Acute respiratory failure with hypoxia; I50.33 Acute on chronic diastolic (congestive) heart failure; N17.9 Acute kidney failure, unspecified; Z68.43 Body mass index [BMI] 50.0-59.9, adult; E87.2 Acidosis; I13.0 Hypertensive heart and chronic kidney disease with heart failure and stage 1 through stage 4 chronic kidney disease, or unspecified chronic kidney disease; J44.1 Chronic obstructive pulmonary disease with (acute) exacerbation; M62.82 Rhabdomyolysis; E87.1 Hypo-osmolality and hyponatremia; D50.9 Iron deficiency anemia, unspecified; E66.01 Morbid (severe) obesity due to excess calories; G47.33 Obstructive sleep apnea (adult) (pediatric); I48.91 Unspecified atrial fibrillation; I87.2 Venous insufficiency (chronic) (peripheral); K80.20 Calculus of gallbladder without cholecystitis without obstruction; N18.9 Chronic kidney disease, unspecified; R53.81 Other malaise; Z71.3 Dietary counseling and surveillance; Z87.891 Personal history of nicotine dependence
CPT/HCPCS: 36415; 36600; 71045; 76604; 76775; 80048; 80053; 80061; 80202; 81001; 81003; 82043; 82306; 82550; 82553; 82570; 82728; 82803; 83036; 83540; 83605; 83690; 83735; 83880; 84100; 84155; 84156; 84165; 84166; 84300; 84439; 84443; 84481; 84484; 85025; 85378; 85610; 85730; 86320; 86325; 86803; 87040; 87081; 87086; 87340; 93005; 93306; 93970; 94660; 97116; 97162; 97530; C9113; J0456; J0696; J1644; J1940; J2916; J3370; J3475; J7040; J7050